=== PATIENT | male | born 1960 | race African-American/Black ===

== ENCOUNTER 2017-01-08 00:54 | Inpatient (IN) | payer SELFPAY ==
[~2017-01-08] VITALS: Ht 185.4 cm; Wt 140.0 kg
[2017-01-08 02:52] VITALS: BP 168/82; PULSE 71; RESP 18; TEMP 97.9; O2SAT 97
[2017-01-08] MEDS ORDERED: MAGNESIUM HYDROXIDE SUSP 30 ML CUP PO PRN ×2 (03:30→12:00)
[2017-01-08] MEDS ORDERED: LORazepam 2 MG/ML VIAL IM PRN (03:30)
[2017-01-08] MEDS ORDERED: ACETAMINOPHEN 325 MG TAB PO PRN ×2 (03:30→12:00)
[2017-01-08] MEDS ORDERED: ALUMINUM/MAGNESIUM/SIMETH 30 ML CUP PO PRN ×2 (03:30→12:00)
[2017-01-08] MEDS ORDERED: LORazepam 1 MG TAB PO PRN (03:30)
[2017-01-08 05:49] VITALS: BP 176/90; PULSE 76; RESP 17; TEMP 97.7; O2SAT 98
[2017-01-08] MEDS: NICOTINE 21 MG/24 HR PATCH T-DERMAL SCH (09:00)
[2017-01-08] MEDS ORDERED: hydrOXYzine HCL 50 MG TAB PO PRN (12:00)
[2017-01-08] MEDS ORDERED: HALOPERIDOL DECANOATE 50 MG/ML VIAL IM SCH (12:15)
--- NOTE | 2017-01-08 12:24 | HHI.HP ---
Provisional Diagnosis Admission Date Jan 08, 2017 at 02:47 [place] I. Schizophrenia chronic paranoid type f 20.0 Certification of Person's Competence To Provide Express and Informed Consent I have personally examined Flo Barrios , a person being served at [facility] on, Jan 08, 2017 12:06. Express and informed consent means consent voluntarily given in writing, by a competent person, after sufficient explanation and disclosure of the subject matter involved to enable the person to make a knowing and willful decision without any element of force, fraud, deceit, duress, or other form of constraint or coercion. This person is 18 years of age or older, is not now known to be incompetent to consent to treatment with a guardian advocate, and does not have a health care surrogate or proxy currently making medical treatment decisions. I have found this person to be one of the following: [] Competent to provide express and informed consent, as defined above, for voluntary admission to this facility and is competent to provide express and informed consent for treatment. He/she has the consistent capacity to make well reasoned, willful, and knowing decisions concerning his or her medical or mental health treatment. The person fully and consistently understands the purpose of the admission for examination/placement and is fully capable of personally exercising all rights assured [place] [] Incompetent to provide express and informed consent to voluntary admission, and this is incompetent to provide express and informed consent to treatment. The person must be transferred to involuntary status and a petition for a guardian advocate filed with the Circuit Court. [xxx] Refusing to provide express and informed consent to voluntary admission but is competent to provide express and informed consent for treatment. The person must be discharged or transferred to involuntary status. Form shall be completed within 24 hours of a person's arrival at the receiving facility and filed in the clinical record of each person: 1. Admitted on a voluntary basis 2. Permitted to provide express and informed consent to his/her own treatment 3. Allowed to transfer from involuntary to voluntary status 4. Prior to permitting a person to consent to his or her own treatment after having been previously found incompetent to consent to treatment. History of Present Illness Capacity: Lacks Capacity (patient less capacity to sign for admission, patient has capacity to sign for medication) Psych Chief Complaint: increase auditory hallucinations of command nature with suicidal ideation HPI Patient is a 56-year-old Afro-Swiss male who initially came to [facility] under [place] act signed by a Ericka Galan dated at 0110 a.m. if document reviewed initially stating schizophrenia bipolar disorder, patient well known history of suicidal attempts presents with states "I want to kill myself" patient states she has a psych history but is unable to afford his medications patient is medically cleared at that facility transferred here under the [place] act this of patient's first visit to this facility. At the present time patient sitting in chair in the day room medical student Eran present throughout session. He has a stockily built muscular somewhat disheveled Afro-Swiss male with graying hearing graying castaneda. He is guarded and hostile and somewhat paranoid. Though with gentle questioning acknowledges increased auditory hallucinations of a command nature telling him to harm himself. He acknowledges multiple past psychiatric hospitalizations primarily in the [facility]. It appears she is just about due for his Haldol decanoate injection that is scheduled every 21 days. He does acknowledge at times increase voices prior to his injection. Patient was is a somewhat confusing contradictory suggestive type responses to questioning when asked about education he stated he went to [employer]. But then he also complains she said various incarcerations in his past. He is somewhat vague also about past substance abuse history. He is vague about his lodging also voiced states he has lived in [facility] in the past. He states he has been remarried. And does have children though he is vague about his relationship with them in their location. Many event at the present time patient does meet criteria for involuntary psychiatric hospitalization under the [place] act I'll do first opinion request second opinion. Though I feel he does have capacity to sign for his medications. We will restart him on Haldol 5 mg orally twice a day. We 'll also offer him for Haldol decanoate 50 mg IM today and every 21 days. Will have a counselor work with exploring placement options for this gentleman once he stabilizes. It appears she does wish to return to the [facility] patient is vague with any prior physical or sexual abuse or mental health history and family Review of Systems Constitutional: DENIES: Diaphoretic episodes, Fatigue, Fever, Weight gain, Weight loss, Chills, Dizziness, Change in appetite, Night Sweats Endocrine: DENIES: Heat/cold intolerance, Polydipsia, Polyuria, Polyphagia Eyes: DENIES: Blurred vision, Diplopia, Eye inflammation, Eye pain, Vision loss , Photosensitivity, Double Vision Ears, nose, mouth, throat: DENIES: Tinnitus, Hearing loss, Vertigo, Nasal discharge, Oral lesions, Throat pain, Hoarseness, Ear Pain, Running Nose, Epistaxis, Sinus Pain, Toothache, Odynophagia Respiratory: DENIES: Apneas, Cough, Snoring, Wheezing, Hemoptysis, Sputum production, Shortness of breath Cardiovascular: DENIES: Chest pain, Palpitations, Syncope, Dyspnea on Exertion , PND, Lower Extremity Edema, Orthopnea, Claudication Gastrointestinal: DENIES: Abdominal pain, Black stools, Bloody stools, Constipation, Diarrhea, Nausea, Vomiting, Difficulty Swallowing, Anorexia Genitourinary: DENIES: Sexual dysfunction, Urinary frequency, Urinary incontinence, Urgency, Hematuria, Dysuria, Nocturia, Penile Discharge, Testicular Pain, Testicular Swelling Musculoskeletal: DENIES: Joint pain, Muscle aches, Stiffness, Joint Swelling, Back pain, Neck pain Integumentary: DENIES: Abnormal pigmentation, Nail changes, Pruritus, Rash Hematologic/lymphatic: DENIES: Bruising, Lymphadenopathy Immunologic/allergic: DENIES: Eczema, Urticaria Neurologic: DENIES: Abnormal gait, Headache, Localized weakness, Paresthesias, Seizures, Speech Problems, Tremor, Poor Balance Psychiatric: COMPLAINS OF: Anxiety, Depression, Hallucinations, Suicidal Ideation Past Psych History Psychological trauma history Denies Violence risk - others (6 mos) Denies Violence risk - self (6 mos) Is suicidal ideation Substance Abuse History Drugs/Alcohol past 12 months Denies Past Family Social History Coded Allergies: aspirin (Verified Allergy, Unknown, 01/08/17) pork derived (porcine) (Verified Allergy, Unknown, 01/08/17) Past Medical History Patient medically cleared [facility] Current Medications Medications (Trade) Dose Ordered Sig/Michael Route Start Time Stop Time Status Last Admin (Ativan) 1 mg Q6H PRN PO 01/08/17 03:30 (Ativan Inj) 1 mg Q6H PRN IM 01/08/17 03:30 (Tylenol) 650 mg Q4H PRN PO 01/08/17 03:30 (Milk Of Magnesia Liq) 30 ml DAILY PRN PO 01/08/17 03:30 (Mag-Al Plus Susp Liq) 30 ml Q6H PRN PO 01/08/17 03:30 (Habitrol 21 Mg Patch.24 Hr) 1 patch DAILY T-DERMAL 01/08/17 09:00 Miscellaneous Information 1 HS T-DERMAL 01/08/17 21:00 Family Psych History Patient unwilling to discuss Social History Patient vague confusing about marriages children living situation Patient's Strengths (min. 2) Patient verbal able to access healthcare Physical Exam Patient medically cleared [facility]. Present time patient sitting quietly in his chair in day room is in no acute distress, no respiratory distress, no complaints of abdominal pain patient moves all 4 extremities without difficulty. No abnormal motor movements noted Vital Signs Vital Signs Date Time Temp Pulse Resp B/P (MAP) Pulse Ox O2 Delivery O2 Flow Rate FiO2 01/08/17 05:49 97.7 76 17 176/90 (118) 98 Mental Status Examination Appearance: Disheveled, Malodorous Consciousness: Alert Orientation: x4 Motor Activity: Normal gait Speech: Unremarkable Language: Adequate Fund of Knowledge: Adequate Attention and Concentration: Other (fair) Memory: Impaired (at times somewhat confusing) Mood: Angry, Sad, Irritable Affect: Other (slight increase range of motion intensity) Thought Process & Associations: Loose associations Thought Content: Bizarre thinking, Hallucinations Hallucination Type: Auditory Delusion Type: Paranoid Suicidal Ideation: Yes (vague) Suicidal Plan: Yes (vague) Suicidal Intention: Yes (vague) Homicidal Ideation: No Homicidal Plan: No Homicidal Intention: No Insight: Poor Judgment: Poor Assessment & Plan Problem List: (1) Paranoid type schizophrenia, chronic state ICD Codes: F20.0 - Paranoid schizophrenia Assessment & Plan Estimated LOS: 3-5 days patient meets criteria for involuntary psychiatric consultation of the [place] act. I'll do first opinion request second opinion. We'll start him on Haldol 5 mg twice a day, also offer him a Drew decanoate 50 mg IM injection that stool daily 21 days. We will counselor talk with patient on Tuesday concerning placement issues with a locally or back in the [place] area Discharge Planning See above Request HC Surrog/Guard Advoc?: No Lanre Patel MD Jan 08, 2017 12:24
[2017-01-08] MEDS: HALOPERIDOL 5 MG TAB PO SCH ×2 (14:42→21:42)
[2017-01-08 17:32] VITALS: BP 175/106; PULSE 68; RESP 18; TEMP 98.9; O2SAT 96
[2017-01-08] MEDS: REMOVE OLD NICOTINE PATCH T-DERMAL SCH (21:00)
[2017-01-08 21:30] VITALS: BP 156/83
[2017-01-09 05:45] VITALS: BP 154/77
[2017-01-09 05:50] VITALS: BP 218/123; PULSE 79; RESP 18; TEMP 98.2; O2SAT 100
[2017-01-09] MEDS: HALOPERIDOL 5 MG TAB PO SCH ×2 (08:52→20:39)
[2017-01-09] MEDS: NICOTINE 21 MG/24 HR PATCH T-DERMAL SCH (08:52)
[2017-01-09 08:55] VITALS: BP 137/80; PULSE 76
--- NOTE | 2017-01-09 13:54 | PD.PSY.CON ---
Provisional Diagnosis Admission Date Jan 08, 2017 at 02:47 [place] I. Schizophrenia chronic paranoid type f 20.0 History of Present Illness Service Psychiatry Consult Requested By psychiatry Reason for Consult 2nd opinion Primary Care Physician No Primary Care Physician HPI Pt seen and chart reviewed. Pt is a 56YOBM admited to [facility] under a BA alleging suicidal ideations. Pt confirmed to RN that he is experiencing AH telling him to harm himself via hanging. He is cooperative during interview and appears to be responding to internal stimuli. He states that he is tolerating haldol well and it usually works well for him. He contracts for safety in hospital stating, "there's no way to do that here. I want to get better not ". He is somewhat paranoid but has been cooperative with care. Past Family Social History Coded Allergies: aspirin (Verified Allergy, Unknown, 01/08/17) pork derived (porcine) (Verified Allergy, Unknown, 01/08/17) Past Medical History reports hx of seizure while in senior living many years ago. many psychiatric hospitalizations. Current Medications Medications (Trade) Dose Ordered Sig/Michael Route Start Time Stop Time Status Last Admin (Ativan) 1 mg Q6H PRN PO 01/08/17 03:30 (Ativan Inj) 1 mg Q6H PRN IM 01/08/17 03:30 (Habitrol 21 Mg Patch.24 Hr) 1 patch DAILY T-DERMAL 01/08/17 09:00 Miscellaneous Information 1 HS T-DERMAL 01/08/17 21:00 (Benadryl) 50 mg HS PRN PO 01/08/17 12:00 (Tylenol) 650 mg Q4H PRN PO 01/08/17 12:00 (Milk Of Magnesia Liq) 30 ml DAILY PRN PO 01/08/17 12:00 01/08/17 14:42 (Mag-Al Plus Susp Liq) 30 ml Q6H PRN PO 01/08/17 12:00 (Atarax) 50 mg Q6H PRN PO 01/08/17 12:00 (Haldol) 5 mg BID PO 01/08/17 12:15 01/09/17 08:52 (Haldol Decanoate Inj) 50 mg Q21D IM 01/08/17 12:15 01/08/17 14:41 Family Psych History unknonw Social History disabled. homeless Patient's Strengths (min. 2) Patient verbal able to access healthcare Physical Exam Vital Signs Vital Signs Date Time Temp Pulse Resp B/P (MAP) Pulse Ox O2 Delivery O2 Flow Rate FiO2 01/09/17 08:55 76 137/80 (99) 01/09/17 05:50 98.2 18 100 Mental Status Examination Appearance: Disheveled, Malodorous Consciousness: Alert Orientation: x4 Motor Activity: Normal gait Speech: Unremarkable Language: Adequate Fund of Knowledge: Adequate Attention and Concentration: Other (fair) Memory: Impaired (at times somewhat confusing) Mood: Angry, Sad, Irritable Affect: Other (slight increase range of motion intensity) Thought Process & Associations: Loose associations Thought Content: Bizarre thinking, Hallucinations Hallucination Type: Auditory Delusion Type: Paranoid Suicidal Ideation: Yes (vague) Suicidal Plan: Yes (reports command AH telling him to harm self but denies intent) Suicidal Intention: No (denies intent) Homicidal Ideation: No Homicidal Plan: No Homicidal Intention: No Insight: Poor Judgment: Poor Assessment & Plan Problem List: (1) Paranoid type schizophrenia, chronic state ICD Codes: F20.0 - Paranoid schizophrenia Assessment & Plan I agree pt meets criteria for involuntary hospitalization order. 2nd opinon completed. Estimated LOS: days Request HC Surrog/Guard Advoc?: Emilia Praker MD Jan 09, 2017 13:54
[2017-01-09 17:27] VITALS: BP 146/80; PULSE 64; RESP 17; TEMP 97.5; O2SAT 99
[2017-01-09] MEDS: REMOVE OLD NICOTINE PATCH T-DERMAL SCH (20:39)
[2017-01-09] MEDS: diphenhydrAMINE HCL 50 MG CAP PO PRN (20:55)
[2017-01-10 06:25] VITALS: BP 152/83; PULSE 76; RESP 18; TEMP 98.7; O2SAT 100
[2017-01-10] MEDS ORDERED: cloNIDine HCL 0.1 MG TAB PO PRN (08:30)
--- NOTE | 2017-01-10 08:50 | PD.CONS ---
HPI Service [facility] Consult Requested By DR DESAI Reason for Consult DIABETES MANAGEMENT AND HYPERTENSION Primary Care Physician No Primary Care Physician Diagnoses: History of Present Illness PATIENT TRANSFERRED INTO PSYCHIATRY FROM [facility] UNDER [place] ACT KNOWN PSYCHIATRIC HISTORY PATIENT CURRENTLY DENIES ANY OTHER MEDICAL PROBLEMS OTHER THAN ALCOHOL ABUSE DENIES CHEST PAIN OR DIABETES OR HYPERTENSION AT THIS EXACT MOMENT NO NEW COMPLAINTS DENIES ANY MEDICATIONS OTHER THAN PSYCHIATRIC MEDICATIONS Review of Systems ROS Limitations: Altered Mental Status, Psychotic Constitutional: DENIES: Diaphoretic episodes, Fatigue, Fever, Weight gain Endocrine: DENIES: Heat/cold intolerance, Polydipsia Eyes: DENIES: Blurred vision, Diplopia Ears, nose, mouth, throat: DENIES: Tinnitus, Hearing loss Respiratory: DENIES: Apneas, Cough Cardiovascular: DENIES: Chest pain, Palpitations, Syncope Gastrointestinal: DENIES: Abdominal pain, Black stools, Bloody stools Musculoskeletal: DENIES: Joint pain, Muscle aches Integumentary: DENIES: Abnormal pigmentation, Nail changes Hematologic/lymphatic: DENIES: Bruising, Lymphadenopathy Immunologic/allergic: DENIES: Eczema, Urticaria Neurologic: DENIES: Abnormal gait, Headache Psychiatric: COMPLAINS OF: Anxiety, Confusion, Mood changes, Depression, Agitation Except as stated in HPI: all other systems reviewed are Neg Past Family Social History Allergies: Coded Allergies: aspirin (Verified Allergy, Unknown, 01/08/17) pork derived (porcine) (Verified Allergy, Unknown, 01/08/17) Past Medical History POSSIBLE HYPERTENSION AND DM AND ALCOHOL ABUSE OBESITY PSYCHIATRIC DISORDERS Past Surgical History POSSIBLE CARDIAC CATHETERIZATION Reported Medications UNOBTAINABLE Active Ordered Medications Current Medications Lorazepam (Ativan) 1 mg Q6H PRN PO MODERATE TO SEVERE ANXIETY; Start 01/08/17 at 03:30 Lorazepam (Ativan Inj) 1 mg Q6H PRN IM MODERATE TO SEVERE ANXIETY; Start 01/08 at 03:30 Acetaminophen (Tylenol) 650 mg Q4H PRN PO Pain 1-5 or Temp >101F; Start at 03:30; Stop 01/08/17 at 12:08; Status DC Magnesium Hydroxide (Milk Of Magnesia Liq) 30 ml DAILY PRN PO CONSTIPATION; Start 01/08/17 at 03:30; Stop 01/08/17 at 12:08; Status DC Al Hydrox/Mg Hydrox/Simethicone (Mag-Al Plus Susp Liq) 30 ml Q6H PRN PO DYSPEPSIA; Start 01/08/17 at 03:30; Stop 01/08/17 at 12:08; Status DC Nicotine (Habitrol 21 Mg Patch.24 Hr) 1 patch DAILY T-DERMAL ; Start 01/08/17 at 09:00 Miscellaneous Information 1 HS T-DERMAL ; Start 01/08/17 at 21:00 Diphenhydramine HCl (Benadryl) 50 mg HS PRN PO INSOMNIA Last administered on 20:55; Start 01/08/17 at 12:00 Acetaminophen (Tylenol) 650 mg Q4H PRN PO Pain 1-5 or Temp >101F; Start at 12:00 Magnesium Hydroxide (Milk Of Magnesia Liq) 30 ml DAILY PRN PO CONSTIPATION Last administered on 01/08/17 14:42; Start 01/08/17 at 12:00 Al Hydrox/Mg Hydrox/Simethicone (Mag-Al Plus Susp Liq) 30 ml Q6H PRN PO DYSPEPSIA; Start 01/08/17 at 12:00 Hydroxyzine HCl (Atarax) 50 mg Q6H PRN PO ANXIETY; Start 01/08/17 at 12:00 Haloperidol (Haldol) 5 mg BID PO Last administered on 01/09/17 20:39; Start 01/08/17 at 12:15 Haloperidol Decanoate (Haldol Decanoate Inj) 50 mg Q21D IM Last administered on 01/08/17 14:41; Start 01/08/17 at 12:15 Clonidine (Catapres) 0.1 mg Q4H PRN PO SBP>160, DBP>90; Start 01/10/17 at 08: 30 Family History UNOBTAINABLE Social History ALCOHOL ABUSE VODKA 2 PINTS/5THS A WEEK DENIES ILLICITS TOBACCO Physical Exam Vital Signs Vital Signs Date Time Temp Pulse Resp B/P (MAP) Pulse Ox O2 Delivery O2 Flow Rate FiO2 01/10/17 06:25 98.7 76 18 152/83 (106) 100 01/09/17 17:27 97.5 64 17 146/80 (102) 99 01/09/17 08:55 76 137/80 (99) Physical Exam GENERAL: This is a well-nourished, well-developed patient, in no apparent distress. SKIN: No rashes, ecchymoses or lesions. Cool and dry. HEAD: Atraumatic. Normocephalic. No temporal or scalp tenderness. EYES: Pupils equal round and reactive. Extraocular motions intact. No scleral icterus. No injection or drainage. ENT: Nose without bleeding, purulent drainage or septal hematoma. Throat without erythema, tonsillar hypertrophy or exudate. Uvula midline. Airway patent. NECK: Trachea midline. No JVD or lymphadenopathy. Supple, nontender, no meningeal signs. CARDIOVASCULAR: Regular rate and rhythm without murmurs, gallops, or rubs. S1, S2 NO S3 OR S4 RESPIRATORY: Clear to auscultation. Breath sounds equal bilaterally. No wheezes , rales, or rhonchi. GASTROINTESTINAL: Abdomen soft, non-tender, nondistended. No hepato-splenomegaly , or palpable masses. No guarding. OBESE MUSCULOSKELETAL: Extremities without clubbing, cyanosis, or edema. No joint tenderness, effusion, or edema noted. No calf tenderness. Negative Homans sign bilaterally. NEUROLOGICAL: Awake and alert. Cranial nerves II through XII intact. Motor and sensory grossly within normal limits. Five out of 5 muscle strength in all muscle groups. Normal speech. INSIGHT AND JUDGEMENT IS LIMITED MOOD AND BEHAVIOR IS INAPPROPRIATE Laboratory NOT DONE YET Imaging NOT DONE HERE Assessment and Plan Problem List: (1) Paranoid type schizophrenia, chronic state ICD Code: F20.0 - Paranoid schizophrenia Assessment and Plan POSSIBLE HYPERTENSION- WILL MONITOR AND HAVE PRN CATAPRES AVAILABLE POSSIBLE DM- WILL CHECK LABS, AND HEMOGLOBIN A1C OBESITY- WEIGHT LOSS RECOMMENDED ALCOHOL ABUSE MVI, THIAMINE, FOLIC ACID CHECK LABS TO RULE OUT THYROID ISSUES DW RN AND PT Code Status FULL CODE Discussed Condition With RN AND PATIENT NachoNeilInez ZHENG Jan 10, 2017 08:50
[2017-01-10] MEDS: THIAMINE HCL 100 MG TAB PO SCH (09:00)
[2017-01-10] MEDS: FOLIC ACID 1 MG TAB PO SCH (09:00)
[2017-01-10] MEDS: MULTIVITAMIN TAB PO SCH (09:00)
[2017-01-10] MEDS ORDERED: NICOTINE 14 MG/24 HR PATCH T-DERMAL PRN (09:00)
[2017-01-10] MEDS: HALOPERIDOL 5 MG TAB PO SCH ×2 (09:36→20:29)
--- NOTE | 2017-01-10 10:21 | PD.TTN ---
Patient Problems 1. Discharge planning 2. Medication compliance 3. Knowledge deficit 4. Lack of coping skills Progress Toward Goals Provider Present: Dr. Nallely Patel Provider Input: Dr. Patel's treatment team met to discuss patient's treatment plan, medicaition, and discharge plan. Patient continues to present paranoid, agitated, continue with treatment. Nurse(s) Input: Patient's nurse Angie reports patient is medication compliant, reports feeling anxious and suicidal . Psych Therapist Input: Patient seen in his room. Patient made very minimal conversation with this counselor. Patient reported he was feeling anxious, and suicidal, denied homicidal. Patient made poor eye sight. Patient continues to present paranoid. Patient will remain on unit for further stablization. Patient reports once he is discharged he wants to go to [place] to live with his friend. Group Spec/RT/OT/GALVAN Present: Jason Rivera OT Group Spec/RT/OT/GALVAN Input: Patient is new and has only attended [facility] Jan 10, 2017 10:21
--- NOTE | 2017-01-10 13:43 | HHI.PYPN ---
Subjective Chief Complaint: increase auditory hallucinations of command nature with suicidal ideation Remarks Patient seen in his room with medical student Rafaela, patient calm cooperative patient laying in bed face down of poor eye contact. It is noted that he continues to be quite malodorous. He acknowledges continued auditory hallucinations of threatening nature telling him to kill himself. Continues to have some vague suicidal ideation. Will increase his oral Haldol to 10 mg twice a day. Review of Systems Except as stated in HPI: all other systems reviewed are Neg Mental Status Examination Appearance: Disheveled, Malodorous Consciousness: Alert Orientation: x4 Motor Activity: Normal gait Speech: Unremarkable Language: Adequate Fund of Knowledge: Adequate Attention and Concentration: Other (fair) Memory: Impaired (at times somewhat confusing) Mood: Angry, Sad, Irritable Affect: Other (slight increase range of motion intensity) Thought Process & Associations: Loose associations Thought Content: Bizarre thinking, Hallucinations Hallucination Type: Auditory Delusion Type: Paranoid Suicidal Ideation: Yes (vague) Suicidal Plan: Yes (reports command AH telling him to harm self but denies intent) Suicidal Intention: No (denies intent) Homicidal Ideation: No Homicidal Plan: No Homicidal Intention: No Insight: Poor Judgment: Poor Results Vitals/IOs Vital Signs Date Time Temp Pulse Resp B/P (MAP) Pulse Ox O2 Delivery O2 Flow Rate FiO2 01/10/17 06:25 98.7 76 18 152/83 (106) 100 Intake and Output 01/10/17 01/10/17 01/11/17 08:00 16:00 00:00 Intake Total 240 ml 540 ml Balance 240 ml 540 ml Assessment & Plan Problem List: (1) Paranoid type schizophrenia, chronic state ICD Codes: F20.0 - Paranoid schizophrenia Assessment & Plan Estimated LOS: days patient continue psychotic paranoid with threatening auditory hallucinations. Thus Ramona some suicidal ideation. However he is compliant with medications, and has been no behavioral issue. Will increase oral Haldol to 10 mg twice a day Justification for Cont. Inpt. At this time patient will decompensate if placed in the lower level of care Discharge Planning Alternatives need to be explored by treatment team and counselor. Also need to determine patient's wishes about possibility of an [facility] placement Request HC Surrog/Guard Advoc?: No Lanre Patel MD Jan 10, 2017 13:43
[2017-01-10 13:44] LABS: AUTOMATED NEUTROPHIL # 2.4 TH/MM3 (1.8-7.7); BASOPHIL % 0.6 % (0.0-2.0); EOSINOPHIL # 0.4 TH/MM3 (0-0.4); EOSINOPHIL % 7.5 % (0.0-4.0); HEMATOCRIT 41.8 % (39.0-51.0); HEMO FLAGS DIFF FINAL; LYMPH % 31.1 % (9.0-44.0); LYMPHOCYTE # 1.6 TH/MM3 (1.0-4.8); MEAN CELL VOLUME 77.9 FL (80.0-100.0); MEAN CORPUSCULAR HEMOGLOBIN 25.2 PG (27.0-34.0); MEAN CORPUSCULAR HGB CONC 32.3 % (32.0-36.0); MONO % 13.5 % (0.0-8.0); NEUT % 47.3 % (16.0-70.0); PLATELET COUNT 224 TH/MM3 (150-450); RED BLOOD COUNT 5.37 MIL/MM3 (4.50-5.90); RED CELL DISTRIBUTION WIDTH 16.1 % (11.6-17.2); WHITE BLOOD COUNT 5.1 TH/MM3 (4.0-11.0)
[2017-01-10 14:13] LABS: ALT (GPT) 53 U/L (12-78); ANION GAP 9 MEQ/L (5-15); AST (GOT) 35 U/L (15-37); BICARBONATE 27.1 MEQ/L (21.0-32.0); BLOOD UREA NITROGEN 14 MG/DL (7-18); CHLORIDE 102 MEQ/L (98-107); GLOMERULAR FILTRATION RATE 75 ML/MIN (>89); SODIUM (NA) 138 MEQ/L (136-145)
[2017-01-10 14:22] LABS: ALKALINE PHOSPHATASE 55 U/L (45-117); FREE T4 0.86 NG/DL (0.76-1.46); TOTAL BILIRUBIN ADULT 0.2 MG/DL (0.2-1.0)
[2017-01-10 17:14] LABS: HEMOGLOBIN A1a 1.2 %; HEMOGLOBIN Ao 83.6 %; HEMOGLOBIN LA1C 2.1 %; HEMOGLOBIN P3 3.8 %
[2017-01-10 18:11] VITALS: BP 146/80; PULSE 64; RESP 18; TEMP 97.1; O2SAT 99
[2017-01-10] MEDS ORDERED: REMOVE OLD NICODERM (NICOTINE) PATCH T-DERMAL PRN (21:00)
[2017-01-10] MEDS: diphenhydrAMINE HCL 50 MG CAP PO PRN (21:35)
[2017-01-11 05:39] VITALS: BP 153/92; PULSE 81; RESP 17; TEMP 97.4; O2SAT 96
[2017-01-11 06:13] VITALS: BP 148/82
[2017-01-11] MEDS ORDERED: DEXTROSE 50% IN WATER 50 ML VIAL(D50) IV PUSH PRN (08:30)
[2017-01-11] MEDS ORDERED: GLUCAGON 1 MG/ML VIAL OTHER PRN (08:30)
[2017-01-11] MEDS: MULTIVITAMIN TAB PO SCH (09:04)
[2017-01-11] MEDS: FOLIC ACID 1 MG TAB PO SCH (09:04)
[2017-01-11] MEDS: THIAMINE HCL 100 MG TAB PO SCH (09:04)
[2017-01-11] MEDS: HALOPERIDOL 5 MG TAB PO SCH ×2 (09:05→20:08)
--- NOTE | 2017-01-11 10:02 | HHI.PR ---
Subjective Remarks PATIENT TRANSFERRED INTO PSYCHIATRY FROM [facility] UNDER [place] ACT KNOWN PSYCHIATRIC HISTORY PATIENT CURRENTLY DENIES ANY OTHER MEDICAL PROBLEMS OTHER THAN ALCOHOL ABUSE DENIES CHEST PAIN OR DIABETES OR HYPERTENSION AT THIS EXACT MOMENT NO NEW COMPLAINTS DENIES ANY MEDICATIONS OTHER THAN PSYCHIATRIC MEDICATIONS 01-11 HAS DM WITH HGBA1C OF 6.6 ACCU CHECKS AC AND HS DM DIET DW RN AND PT Objective Vitals Vital Signs Date Time Temp Pulse Resp B/P (MAP) Pulse Ox O2 Delivery O2 Flow Rate FiO2 01/11/17 06:13 148/82 (104) 01/11/17 05:39 97.4 81 17 153/92 (112) 96 01/10/17 18:11 97.1 64 18 146/80 (102) 99 I/O 01/10/17 01/10/17 01/10/17 01/11/17 01/11/17 01/11/17 07:00 15:00 23:00 07:00 15:00 23:00 Intake Total 780 ml 240 ml 480 ml Balance 780 ml 240 ml 480 ml Intake Oral 780 ml 240 ml 480 ml Result Diagram: 01/10/17 1255 01/10/17 1255 Other Results Laboratory Tests Test 01/10/17 12:55 White Blood Count 5.1 TH/MM3 Red Blood Count 5.37 MIL/MM3 Hemoglobin 13.5 GM/DL Hematocrit 41.8 % Mean Corpuscular Volume 77.9 FL Mean Corpuscular Hemoglobin 25.2 PG Mean Corpuscular Hemoglobin Concent 32.3 % Red Cell Distribution Width 16.1 % Platelet Count 224 TH/MM3 Mean Platelet Volume 8.4 FL Neutrophils (%) (Auto) 47.3 % Lymphocytes (%) (Auto) 31.1 % Monocytes (%) (Auto) 13.5 % Eosinophils (%) (Auto) 7.5 % Basophils (%) (Auto) 0.6 % Neutrophils # (Auto) 2.4 TH/MM3 Lymphocytes # (Auto) 1.6 TH/MM3 Monocytes # (Auto) 0.7 TH/MM3 Eosinophils # (Auto) 0.4 TH/MM3 Basophils # (Auto) 0.0 TH/MM3 CBC Comment DIFF FINAL Differential Comment Blood Urea Nitrogen 14 MG/DL Creatinine 1.22 MG/DL Random Glucose 113 MG/DL Total Protein 6.9 GM/DL Albumin 3.1 GM/DL Calcium Level 9.2 MG/DL Phosphorus Level 4.3 MG/DL Magnesium Level 2.0 MG/DL Alkaline Phosphatase 55 U/L Aspartate Amino Transf (AST/SGOT) 35 U/L Alanine Aminotransferase (ALT/SGPT) 53 U/L Total Bilirubin 0.2 MG/DL Sodium Level 138 MEQ/L Potassium Level 4.0 MEQ/L Chloride Level 102 MEQ/L Carbon Dioxide Level 27.1 MEQ/L Anion Gap 9 MEQ/L Estimat Glomerular Filtration Rate 75 ML/MIN Hemoglobin A1c 6.6 % Free Thyroxine 0.86 NG/DL Thyroid Stimulating Hormone 3rd Gen 0.983 uIU/ML Objective Remarks GENERAL: This is a well-nourished, well-developed patient, in no apparent distress. SKIN: No rashes, ecchymoses or lesions. Cool and dry. HEAD: Atraumatic. Normocephalic. No temporal or scalp tenderness. EYES: Pupils equal round and reactive. Extraocular motions intact. No scleral icterus. No injection or drainage. ENT: Nose without bleeding, purulent drainage or septal hematoma. Throat without erythema, tonsillar hypertrophy or exudate. Uvula midline. Airway patent. NECK: Trachea midline. No JVD or lymphadenopathy. Supple, nontender, no meningeal signs. CARDIOVASCULAR: Regular rate and rhythm without murmurs, gallops, or rubs. S1, S2 NO S3 OR S4 RESPIRATORY: Clear to auscultation. Breath sounds equal bilaterally. No wheezes , rales, or rhonchi. GASTROINTESTINAL: Abdomen soft, non-tender, nondistended. No hepato-splenomegaly , or palpable masses. No guarding. OBESE MUSCULOSKELETAL: Extremities without clubbing, cyanosis, or edema. No joint tenderness, effusion, or edema noted. No calf tenderness. Negative Homans sign bilaterally. NEUROLOGICAL: Awake and alert. Cranial nerves II through XII intact. Motor and sensory grossly within normal limits. Five out of 5 muscle strength in all muscle groups. Normal speech. INSIGHT AND JUDGEMENT IS LIMITED MOOD AND BEHAVIOR IS INAPPROPRIATE Medications and IVs Current Medications Lorazepam (Ativan) 1 mg Q6H PRN PO MODERATE TO SEVERE ANXIETY; Start 01/08/17 at 03:30 Lorazepam (Ativan Inj) 1 mg Q6H PRN IM MODERATE TO SEVERE ANXIETY; Start 01/08 at 03:30 Acetaminophen (Tylenol) 650 mg Q4H PRN PO Pain 1-5 or Temp >101F; Start at 03:30; Stop 01/08/17 at 12:08; Status DC Magnesium Hydroxide (Milk Of Magnesia Liq) 30 ml DAILY PRN PO CONSTIPATION; Start 01/08/17 at 03:30; Stop 01/08/17 at 12:08; Status DC Al Hydrox/Mg Hydrox/Simethicone (Mag-Al Plus Susp Liq) 30 ml Q6H PRN PO DYSPEPSIA; Start 01/08/17 at 03:30; Stop 01/08/17 at 12:08; Status DC Nicotine (Habitrol 21 Mg Patch.24 Hr) 1 patch DAILY T-DERMAL ; Start 01/08/17 at 09:00; Stop 01/10/17 at 09:24; Status DC Miscellaneous Information 1 HS T-DERMAL ; Start 01/08/17 at 21:00; Stop at 09:24; Status DC Diphenhydramine HCl (Benadryl) 50 mg HS PRN PO INSOMNIA Last administered on 21:35; Start 01/08/17 at 12:00 Acetaminophen (Tylenol) 650 mg Q4H PRN PO Pain 1-5 or Temp >101F; Start at 12:00 Magnesium Hydroxide (Milk Of Magnesia Liq) 30 ml DAILY PRN PO CONSTIPATION Last administered on 01/08/17 14:42; Start 01/08/17 at 12:00 Al Hydrox/Mg Hydrox/Simethicone (Mag-Al Plus Susp Liq) 30 ml Q6H PRN PO DYSPEPSIA; Start 01/08/17 at 12:00 Hydroxyzine HCl (Atarax) 50 mg Q6H PRN PO ANXIETY; Start 01/08/17 at 12:00 Haloperidol (Haldol) 5 mg BID PO Last administered on 01/10/17 09:36; Start 01/08/17 at 12:15; Stop 01/10/17 at 13:37; Status DC Haloperidol Decanoate (Haldol Decanoate Inj) 50 mg Q21D IM Last administered on 01/08/17 14:41; Start 01/08/17 at 12:15 Clonidine (Catapres) 0.1 mg Q4H PRN PO SBP>160, DBP>90; Start 01/10/17 at 08: 30 Multivitamins (Theragran) 1 tab DAILY PO Last administered on 01/11/17 09:04 ; Start 01/10/17 at 09:00 Thiamine HCl (Vitamin B1) 100 mg DAILY PO Last administered on 01/11/17 09:04 ; Start 01/10/17 at 09:00 Folic Acid (Folate) 1 mg DAILY PO Last administered on 01/11/17 09:04; Start 01/10/17 at 09:00 Nicotine (Habitrol 14 Mg Patch.24 Hr) 1 patch DAILY PRN T-DERMAL TOBACCO CRAVINGS; Start 01/10/17 at 09:00 Miscellaneous Information 1 HS PRN T-DERMAL SEE LABEL COMMENTS; Start at 21:00 Haloperidol (Haldol) 10 mg BID PO Last administered on 01/11/17 09:05; Start 01/10/17 at 21:00 Dextrose (D50w (Vial) Inj) 50 ml UNSCH PRN IV PUSH HYPOGLYCEMIA-SEE COMMENTS; Start 01/11/17 at 08:30 Glucagon (Glucagon Inj) 1 mg UNSCH PRN OTHER HYPOGLYCEMIA-SEE COMMENTS; Start 01/11/17 at 08:30 Insulin Aspart (NovoLOG SUPPLEMENTAL SCALE) 1 ACHS SLIDING SCALE SQ ; Start at 12:00 A/P Problem List: (1) Paranoid type schizophrenia, chronic state ICD Code: F20.0 - Paranoid schizophrenia Assessment and Plan POSSIBLE HYPERTENSION- WILL MONITOR AND HAVE PRN CATAPRES AVAILABLE- POSSIBLE DM- WILL CHECK LABS, AND HEMOGLOBIN R9E--UV DIET OBESITY- WEIGHT LOSS RECOMMENDED ALCOHOL ABUSE MVI, THIAMINE, FOLIC ACID CHECK LABS TO RULE OUT THYROID ISSUES CIARA RN AND PT Neil Griffith DO Jan 11, 2017 10:02
[2017-01-11] MEDS: INSULIN ASPART SUPPLEMENTAL SCALE SQ SCH ×3 (12:00→20:31)
--- NOTE | 2017-01-11 12:41 | HHI.PYPN ---
Subjective Chief Complaint: increase auditory hallucinations of command nature with suicidal ideation Remarks Patient seen in [place] with medical student Rafaela, chart reviewed patient compliant medication. He should continue somewhat sad with continued though diminished auditory hallucinations of a threatening nature. He still has vague suicidal ideation. At this time though I feel patient hasn't improved the point where he is able to sign voluntarily for his admission his medications. Thus I'll lift [place] act allow the patient sign voluntary Review of Systems Except as stated in HPI: all other systems reviewed are Neg Mental Status Examination Appearance: Disheveled, Malodorous Consciousness: Alert Orientation: x4 Motor Activity: Normal gait Speech: Unremarkable Language: Adequate Fund of Knowledge: Adequate Attention and Concentration: Other (fair) Memory: Impaired (at times somewhat confusing) Mood: Angry (decreased anger), Sad, Irritable (decreased irritability) Affect: Other Thought Process & Associations: Loose associations (improving) Thought Content: Bizarre thinking (decreasing), Hallucinations (continuing but diminishing) Hallucination Type: Auditory (continuing but diminishing) Delusion Type: Paranoid Suicidal Ideation: Yes (vague) Suicidal Plan: Yes (reports command AH telling him to harm self but denies intent) Suicidal Intention: No (denies intent) Homicidal Ideation: No Homicidal Plan: No Homicidal Intention: No Insight: Poor Judgment: Poor Results Labs Test 01/10/17 12:55 White Blood Count 5.1 TH/MM3 Red Blood Count 5.37 MIL/MM3 Hemoglobin 13.5 GM/DL Hematocrit 41.8 % Mean Corpuscular Volume 77.9 FL Mean Corpuscular Hemoglobin 25.2 PG Mean Corpuscular Hemoglobin Concent 32.3 % Red Cell Distribution Width 16.1 % Platelet Count 224 TH/MM3 Mean Platelet Volume 8.4 FL Neutrophils (%) (Auto) 47.3 % Lymphocytes (%) (Auto) 31.1 % Monocytes (%) (Auto) 13.5 % Eosinophils (%) (Auto) 7.5 % Basophils (%) (Auto) 0.6 % Neutrophils # (Auto) 2.4 TH/MM3 Lymphocytes # (Auto) 1.6 TH/MM3 Monocytes # (Auto) 0.7 TH/MM3 Eosinophils # (Auto) 0.4 TH/MM3 Basophils # (Auto) 0.0 TH/MM3 CBC Comment DIFF FINAL Differential Comment Blood Urea Nitrogen 14 MG/DL Creatinine 1.22 MG/DL Random Glucose 113 MG/DL Total Protein 6.9 GM/DL Albumin 3.1 GM/DL Calcium Level 9.2 MG/DL Phosphorus Level 4.3 MG/DL Magnesium Level 2.0 MG/DL Alkaline Phosphatase 55 U/L Aspartate Amino Transf (AST/SGOT) 35 U/L Alanine Aminotransferase (ALT/SGPT) 53 U/L Total Bilirubin 0.2 MG/DL Sodium Level 138 MEQ/L Potassium Level 4.0 MEQ/L Chloride Level 102 MEQ/L Carbon Dioxide Level 27.1 MEQ/L Anion Gap 9 MEQ/L Estimat Glomerular Filtration Rate 75 ML/MIN Hemoglobin A1c 6.6 % Free Thyroxine 0.86 NG/DL Thyroid Stimulating Hormone 3rd Gen 0.983 uIU/ML Vitals/IOs Vital Signs Date Time Temp Pulse Resp B/P (MAP) Pulse Ox O2 Delivery O2 Flow Rate FiO2 01/11/17 06:13 148/82 (104) 01/11/17 05:39 97.4 81 17 96 Intake and Output 01/11/17 01/11/17 01/12/17 08:00 16:00 00:00 Intake Total 840 ml Balance 840 ml Assessment & Plan Problem List: (1) Paranoid type schizophrenia, chronic state ICD Codes: F20.0 - Paranoid schizophrenia Assessment & Plan Estimated LOS: days patient continue some auditory hallucinations and suicidality but improving, this may feel patient has the capacity to sign voluntary has capacity significant medications. Thus I will lift the [place] act allow patient to sign voluntary Justification for Cont. Inpt. At this time patient will decompensate if not placed in an appropriate level of care Discharge Planning Patient may become problematic Request HC Surrog/Guard Advoc?: No Lanre Patel MD Jan 11, 2017 12:41
--- NOTE | 2017-01-11 13:55 | PD.TTN ---
Patient Problems 1. Discharge planning 2. Medication compliance 3. Knowledge deficit 4. Lack of coping skills Progress Toward Goals Provider Present: Dr. Nallely Patel Provider Input: Dr. Patel's treatment team met to discuss patient's treatment plan, medicaition, and discharge plan. Patient continues to present paranoid, agitated, continue with treatment. 01/11/17 Patient continues to have auditory hallucinations. Patient continues to state he is suicidal. Patient meets criteria. Nurse(s) Input: Patient's nurse Angie reports patient is medication compliant, reports feeling anxious and suicidal . 01/11/17 Patient's nurse Sonali states patient is hearing voices telling him to hang himself, but contracts for safety. Agrees to come to staff if thoughts become prevailing. Patient paces, medication compliant Psych Therapist Input: Patient seen in his room. Patient made very minimal conversation with this counselor. Patient reported he was feeling anxious, and suicidal, denied homicidal. Patient made poor eye sight. Patient continues to present paranoid. Patient will remain on unit for further stablization. Patient reports once he is discharged he wants to go to [place] to live with his 01/11/17 Patient presented less agitated today, but continues to present with internally stimulation of harming himself. Patient denies homicidal ideation. Patient is medication compliant, eating and sleeping well. Denies feeling paranoid here at the hospital. Patient reports once discharged will go live with friends in [place]. Patient's speech is clear, organized, and pressured. Patient made poor eye contact. friend. Group Spec/RT/OT/GALVAN Present: Jason Rivera OT, MANDY Duron Group Spec/RT/OT/GALVAN Input: Patient is new and has only attended [employer] only 01/11/17 Patient is depressed. Attends selective groups Casandra Damon [facility] Jan 11, 2017 13:55
[2017-01-11 18:00] VITALS: BP 148/95; PULSE 83; RESP 16; TEMP 98.1; O2SAT 97
[2017-01-11] MEDS: diphenhydrAMINE HCL 50 MG CAP PO PRN (23:35)
[2017-01-12 05:28] VITALS: BP 124/72; PULSE 69; RESP 18; TEMP 97.6; O2SAT 93
[2017-01-12] MEDS: INSULIN ASPART SUPPLEMENTAL SCALE SQ SCH (06:12)
[2017-01-12] MEDS: FOLIC ACID 1 MG TAB PO SCH (08:21)
[2017-01-12] MEDS: MULTIVITAMIN TAB PO SCH (08:21)
[2017-01-12] MEDS: THIAMINE HCL 100 MG TAB PO SCH (08:21)
[2017-01-12] MEDS: HALOPERIDOL 5 MG TAB PO SCH (08:23)
[2017-01-12] MEDS ORDERED: amLODIPine BESYLATE 5 MG TAB PO SCH (09:30)
--- NOTE | 2017-01-12 09:41 | HHI.PR ---
Subjective Remarks PATIENT TRANSFERRED INTO PSYCHIATRY FROM [facility] UNDER HERNANDEZ ACT KNOWN PSYCHIATRIC HISTORY PATIENT CURRENTLY DENIES ANY OTHER MEDICAL PROBLEMS OTHER THAN ALCOHOL ABUSE DENIES CHEST PAIN OR DIABETES OR HYPERTENSION AT THIS EXACT MOMENT NO NEW COMPLAINTS DENIES ANY MEDICATIONS OTHER THAN PSYCHIATRIC MEDICATIONS 01-11 HAS DM WITH HGBA1C OF 6.6 ACCU CHECKS AC AND HS DM DIET DW RN AND PT 01-12 DW RN AND PATIENT MAYBE DC TO HOME TODAY NO NEW COMPLAINTS Objective Vitals Vital Signs Date Time Temp Pulse Resp B/P (MAP) Pulse Ox O2 Delivery O2 Flow Rate FiO2 01/12/17 05:28 97.6 69 18 124/72 (89) 93 01/11/17 18:00 98.1 83 16 148/95 (112) 97 I/O 01/11/17 01/11/17 01/11/17 01/12/17 01/12/17 01/12/17 07:00 15:00 23:00 07:00 15:00 23:00 Intake Total 840 ml Balance 840 ml Intake Oral 840 ml Result Diagram: 01/10/17 1255 01/10/17 1255 Other Results Laboratory Tests Test 01/10/17 12:55 White Blood Count 5.1 TH/MM3 Red Blood Count 5.37 MIL/MM3 Hemoglobin 13.5 GM/DL Hematocrit 41.8 % Mean Corpuscular Volume 77.9 FL Mean Corpuscular Hemoglobin 25.2 PG Mean Corpuscular Hemoglobin Concent 32.3 % Red Cell Distribution Width 16.1 % Platelet Count 224 TH/MM3 Mean Platelet Volume 8.4 FL Neutrophils (%) (Auto) 47.3 % Lymphocytes (%) (Auto) 31.1 % Monocytes (%) (Auto) 13.5 % Eosinophils (%) (Auto) 7.5 % Basophils (%) (Auto) 0.6 % Neutrophils # (Auto) 2.4 TH/MM3 Lymphocytes # (Auto) 1.6 TH/MM3 Monocytes # (Auto) 0.7 TH/MM3 Eosinophils # (Auto) 0.4 TH/MM3 Basophils # (Auto) 0.0 TH/MM3 CBC Comment DIFF FINAL Differential Comment Blood Urea Nitrogen 14 MG/DL Creatinine 1.22 MG/DL Random Glucose 113 MG/DL Total Protein 6.9 GM/DL Albumin 3.1 GM/DL Calcium Level 9.2 MG/DL Phosphorus Level 4.3 MG/DL Magnesium Level 2.0 MG/DL Alkaline Phosphatase 55 U/L Aspartate Amino Transf (AST/SGOT) 35 U/L Alanine Aminotransferase (ALT/SGPT) 53 U/L Total Bilirubin 0.2 MG/DL Sodium Level 138 MEQ/L Potassium Level 4.0 MEQ/L Chloride Level 102 MEQ/L Carbon Dioxide Level 27.1 MEQ/L Anion Gap 9 MEQ/L Estimat Glomerular Filtration Rate 75 ML/MIN Hemoglobin A1c 6.6 % Free Thyroxine 0.86 NG/DL Thyroid Stimulating Hormone 3rd Gen 0.983 uIU/ML Objective Remarks GENERAL: This is a well-nourished, well-developed patient, in no apparent distress. SKIN: No rashes, ecchymoses or lesions. Cool and dry. HEAD: Atraumatic. Normocephalic. No temporal or scalp tenderness. EYES: Pupils equal round and reactive. Extraocular motions intact. No scleral icterus. No injection or drainage. ENT: Nose without bleeding, purulent drainage or septal hematoma. Throat without erythema, tonsillar hypertrophy or exudate. Uvula midline. Airway patent. NECK: Trachea midline. No JVD or lymphadenopathy. Supple, nontender, no meningeal signs. CARDIOVASCULAR: Regular rate and rhythm without murmurs, gallops, or rubs. S1, S2 NO S3 OR S4 RESPIRATORY: Clear to auscultation. Breath sounds equal bilaterally. No wheezes , rales, or rhonchi. GASTROINTESTINAL: Abdomen soft, non-tender, nondistended. No hepato-splenomegaly , or palpable masses. No guarding. OBESE MUSCULOSKELETAL: Extremities without clubbing, cyanosis, or edema. No joint tenderness, effusion, or edema noted. No calf tenderness. Negative Homans sign bilaterally. NEUROLOGICAL: Awake and alert. Cranial nerves II through XII intact. Motor and sensory grossly within normal limits. Five out of 5 muscle strength in all muscle groups. Normal speech. INSIGHT AND JUDGEMENT IS LIMITED MOOD AND BEHAVIOR IS INAPPROPRIATE Medications and IVs Current Medications Lorazepam (Ativan) 1 mg Q6H PRN PO MODERATE TO SEVERE ANXIETY Last administered on 01/11/17t 17:30; Start 01/08/17 at 03:30 Lorazepam (Ativan Inj) 1 mg Q6H PRN IM MODERATE TO SEVERE ANXIETY; Start 01/08 at 03:30 Acetaminophen (Tylenol) 650 mg Q4H PRN PO Pain 1-5 or Temp >101F; Start at 03:30; Stop 01/08/17 at 12:08; Status DC Magnesium Hydroxide (Milk Of Magnesia Liq) 30 ml DAILY PRN PO CONSTIPATION; Start 01/08/17 at 03:30; Stop 01/08/17 at 12:08; Status DC Al Hydrox/Mg Hydrox/Simethicone (Mag-Al Plus Susp Liq) 30 ml Q6H PRN PO DYSPEPSIA; Start 01/08/17 at 03:30; Stop 01/08/17 at 12:08; Status DC Nicotine (Habitrol 21 Mg Patch.24 Hr) 1 patch DAILY T-DERMAL ; Start 01/08/17 at 09:00; Stop 01/10/17 at 09:24; Status DC Miscellaneous Information 1 HS T-DERMAL ; Start 01/08/17 at 21:00; Stop at 09:24; Status DC Diphenhydramine HCl (Benadryl) 50 mg HS PRN PO INSOMNIA Last administered on 23:35; Start 01/08/17 at 12:00 Acetaminophen (Tylenol) 650 mg Q4H PRN PO Pain 1-5 or Temp >101F; Start at 12:00 Magnesium Hydroxide (Milk Of Magnesia Liq) 30 ml DAILY PRN PO CONSTIPATION Last administered on 01/08/17 14:42; Start 01/08/17 at 12:00 Al Hydrox/Mg Hydrox/Simethicone (Mag-Al Plus Susp Liq) 30 ml Q6H PRN PO DYSPEPSIA; Start 01/08/17 at 12:00 Hydroxyzine HCl (Atarax) 50 mg Q6H PRN PO ANXIETY; Start 01/08/17 at 12:00 Haloperidol (Haldol) 5 mg BID PO Last administered on 01/10/17 09:36; Start 01/08/17 at 12:15; Stop 01/10/17 at 13:37; Status DC Haloperidol Decanoate (Haldol Decanoate Inj) 50 mg Q21D IM Last administered on 01/08/17 14:41; Start 01/08/17 at 12:15 Clonidine (Catapres) 0.1 mg Q4H PRN PO SBP>160, DBP>90; Start 01/10/17 at 08: 30 Multivitamins (Theragran) 1 tab DAILY PO Last administered on 01/12/17 08:21 ; Start 01/10/17 at 09:00 Thiamine HCl (Vitamin B1) 100 mg DAILY PO Last administered on 01/12/17 08:21 ; Start 01/10/17 at 09:00 Folic Acid (Folate) 1 mg DAILY PO Last administered on 01/12/17 08:21; Start 01/10/17 at 09:00 Nicotine (Habitrol 14 Mg Patch.24 Hr) 1 patch DAILY PRN T-DERMAL TOBACCO CRAVINGS; Start 01/10/17 at 09:00 Miscellaneous Information 1 HS PRN T-DERMAL SEE LABEL COMMENTS; Start at 21:00 Haloperidol (Haldol) 10 mg BID PO Last administered on 01/12/17 08:23; Start 01/10/17 at 21:00 Dextrose (D50w (Vial) Inj) 50 ml UNSCH PRN IV PUSH HYPOGLYCEMIA-SEE COMMENTS; Start 01/11/17 at 08:30 Glucagon (Glucagon Inj) 1 mg UNSCH PRN OTHER HYPOGLYCEMIA-SEE COMMENTS; Start 01/11/17 at 08:30 Insulin Aspart (NovoLOG SUPPLEMENTAL SCALE) 1 ACHS SLIDING SCALE SQ ; Start at 12:00 Amlodipine Besylate (Norvasc) 5 mg DAILY PO Last administered on 01/12/17 09: 29; Start 01/12/17 at 09:30 Urinary Catheter: No Vascular Central Line Catheter: No A/P Problem List: (1) Paranoid type schizophrenia, chronic state ICD Code: F20.0 - Paranoid schizophrenia Assessment and Plan POSSIBLE HYPERTENSION- WILL MONITOR AND HAVE PRN CATAPRES AVAILABLE- POSSIBLE DM- WILL CHECK LABS, AND HEMOGLOBIN A5I--ID DIET OBESITY- WEIGHT LOSS RECOMMENDED ALCOHOL ABUSE MVI, THIAMINE, FOLIC ACID CHECK LABS TO RULE OUT THYROID ISSUES CIARA RN AND PT Neil Griffith DO Jan 12, 2017 09:41
[2017-01-12] MEDS ORDERED: THERTAB15 PO (09:44)
[2017-01-12] MEDS ORDERED: THIA100 PO (09:44)
[2017-01-12] MEDS ORDERED: FOLI1TAB6 PO (09:44)
[2017-01-12] MEDS ORDERED: NICO14DI23 T-DERMAL (09:44)
[2017-01-12] MEDS ORDERED: AMLO5 PO (09:44)
[2017-01-12] MEDS ORDERED: HALO10TA PO (09:52)
[2017-01-12] MEDS ORDERED: HALD50IN IM (09:52)
--- NOTE | 2017-01-12 09:59 | HHI.DS ---
Psychiatry Discharge Summary Inpatient Psychiatric care?: Yes Advance Directive: No Reason Not Provided: unable to assess Mental Health AdvanceDirective: No Health Care Proxy: No Admission Admission Date Jan 08, 2017 at 02:47 Admission Diagnosis: (1) Paranoid type schizophrenia, chronic state ICD Code: F20.0 - Paranoid schizophrenia GAF Score: 1 Brief History Pt seen and chart reviewed. Pt is a 56YOBM admited to [facility] under a BA alleging suicidal ideations. Pt confirmed to RN that he is experiencing AH telling him to harm himself via hanging. He is cooperative during interview and appears to be responding to internal stimuli. He states that he is tolerating haldol well and it usually works well for him. He contracts for safety in hospital stating, "there's no way to do that here. I want to get better not ". He is somewhat paranoid but has been cooperative with care. Tobacco Use In Past 30 Days: 5 or More Cigarettes/Day Alcohol Use: Never Hospital Course Patient's hospital course was uneventful, his initial paranoia vigilance and guardedness slowly resolved with interactions on the milieu, and compliance with his medication. He did receive the Haldol decanoate injection on 01/08. Is been compliant with the oral Haldol without any side effects. The auditory hallucinations have markedly diminished. Though not totally gone. Is able to process them well. Now denies suicidality or homicidality. He states he does have a place to stay. He is willing to continue his medications. He states he also has a psychiatrist in the [place] area. Thus patient will be discharged today to himself the medical medications have been written by the hospitalist. I will write 1 month supply of his oral Haldol on Haldol decanoate 50 mg every 21 days next due on 01/28 Results Blood Pressure 124 / 72 Vital Signs Date Time Temp Pulse Resp B/P (MAP) Pulse Ox O2 Delivery O2 Flow Rate FiO2 01/12/17 05:28 97.6 69 18 124/72 (89) 93 Laboratory Tests Test 01/10/17 12:55 Mean Corpuscular Volume 77.9 FL (80.0-100.0) Mean Corpuscular Hemoglobin 25.2 PG (27.0-34.0) Monocytes (%) (Auto) 13.5 % (0.0-8.0) Eosinophils (%) (Auto) 7.5 % (0.0-4.0) Random Glucose 113 MG/DL (74-106) Albumin 3.1 GM/DL (3.4-5.0) Estimat Glomerular Filtration Rate 75 ML/MIN (>89) Hemoglobin A1c 6.6 % (4.3-6.0) Laboratory Results Test 01/10/17 12:55 Hemoglobin A1c 6.6 % (4.3-6.0) Summary of Procedures None done Pending results at discharge: No Medications # of Antipsychotic meds at D/C: 1 Approp Antipsych med options 1 - Minimum of three failed multiple trials of monotherapy. 2 - Documented plan to taper to monotherapy due to previous use of multiple meds OR cross-taper in progress at D/C. 3 - Documentation of augmentation of Clozapine. 4 - Justification other than those listed in allowable values 1-3, document here : Discharge Discharge Date: Jan 12, 2017 Discharge Diagnosis: (1) Paranoid type schizophrenia, chronic state Diagnosis: Principal ICD Code: F20.0 - Paranoid schizophrenia Pt Condition on Discharge: Stable Discharge Disposition: Discharge Home Discharge Instructions Diet Instructions: Diabetic Diet Additional Diet Instructions: 1800-calorie Activities you can perform: Regular-No Restrictions Scheduled Appointment: Sreekanth Parmar (if patient relocates towards [place] follow-up with mental health clinic in [place]) Discharge Time > 30 minutes Mental Status Examination Appearance: Disheveled, Malodorous Consciousness: Alert Orientation: x4 Motor Activity: Normal gait Speech: Unremarkable Language: Adequate Fund of Knowledge: Adequate Attention and Concentration: Other (fair) Memory: Impaired (at times somewhat confusing) Mood: Angry (decreased anger), Sad, Irritable (decreased irritability) Affect: Other Thought Process & Associations: Loose associations (improving) Thought Content: Bizarre thinking (decreasing), Hallucinations (continuing but diminishing) Hallucination Type: Auditory (continuing but diminishing) Delusion Type: Paranoid Suicidal Ideation: Yes (vague) Suicidal Plan: Yes (reports command AH telling him to harm self but denies intent) Suicidal Intention: No (denies intent) Homicidal Ideation: No Homicidal Plan: No Homicidal Intention: No Insight: Poor Judgment: Poor Discharge/Advance Care Plan Health Problems: (1) Paranoid type schizophrenia, chronic state Goals to promote your health * To prevent worsening of your condition and complications * To maintain your health at the optimal level Directions to meet your goals Take your medications as prescribed Follow your dietary instruction Follow activity as directed Keep your appointments as scheduled Take your immunizations and boosters as scheduled If your symptoms worsen call your PCP, if no PCP go to Urgent Care Center or Emergency Room For 13/09 questions related to your inpatient stay or results of tests pending at discharge, please contact Dr. Lanre Patel at Smoking is Dangerous to Your Health. Avoid second hand smoking Lanre Patel MD Jan 12, 2017 09:59
== END 2017-01-12 11:35 | disposition home or self-care (01) | DRG 885 ==
LOC: H260 02:47 → H250 01-12 11:13
PROVIDERS: ADMIT Psychiatry & Neurology Psychiatry; ATTEND Psychiatry & Neurology Psychiatry
DX: F20.0 Paranoid schizophrenia (principal); R45.851 Suicidal ideations; E11.9 Type 2 diabetes mellitus without complications; I10 Essential (primary) hypertension; F10.10 Alcohol abuse, uncomplicated; Z79.899 Other long term (current) drug therapy; Z72.0 Tobacco use
CPT/HCPCS: 80053; 82948; 83036; 83735; 84100; 84439; 84443; 85025; J1631; Q0163

== ENCOUNTER 2017-07-04 20:57 | Inpatient (IN) | payer SELFPAY ==
[~2017-07-04] VITALS: Ht 185.4 cm; Wt 146.0 kg
[~2017-07-04 20:57] MED LIST: AMLO5 PO; FOLI1TAB6 PO; HALD50IN IM; HALO10TA PO; NICO14DI23 T-DERMAL; THERTAB15 PO; THIA100 PO
[2017-07-04 23:30] VITALS: BP 149/69; PULSE 63; RESP 16; TEMP 98.2; O2SAT 98
[2017-07-05] MEDS ORDERED: ALUMINUM/MAGNESIUM/SIMETH 30 ML CUP PO PRN (00:30)
[2017-07-05] MEDS ORDERED: diphenhydrAMINE HCL 50 MG/ML VIAL - HS PRN IM (00:30)
[2017-07-05] MEDS ORDERED: diphenhydrAMINE HCL 50 MG CAP - HS PRN PO (00:30)
[2017-07-05] MEDS ORDERED: MAGNESIUM HYDROXIDE SUSP 30 ML CUP PO PRN (00:30)
[2017-07-05] MEDS ORDERED: hydrOXYzine HCL 50 MG TAB PO PRN (00:30)
[2017-07-05] MEDS ORDERED: HALO1TAB PO (02:47)
[2017-07-05] MEDS ORDERED: ZYPR5TAB PO (02:47)
[2017-07-05] MEDS ORDERED: HALOPERIDOL 1 MG TAB PO SCH (09:00)
[2017-07-05] MEDS ORDERED: OLANZapine 5 MG TAB PO SCH (09:00)
[2017-07-05] MEDS: ARIPiprazole 10 MG TAB PO SCH (11:00)
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
--- NOTE | 2017-07-05 13:51 | HHI.PR ---
Addendum to Inpatient Note Addendum Reason: Additional Documentation Additional Information Attempted to consult on the patient. He denies history of HTN and refused to talk to me. Please call or reconsult when patient is cooperative. Bay Ospina MD July 05, 2017 13:51
[2017-07-05] MEDS ORDERED: BENZTROPINE MESYLATE 1 MG TAB PO PRN (14:00)
[2017-07-05] MEDS ORDERED: BENZTROPINE MESYLATE 2 MG/2 ML VIAL IM PRN (14:00)
--- NOTE | 2017-07-05 15:49 | PD.TTN ---
Patient Problems 1. Discharge planning 2. Medication compliance 3. Knowledge deficit 4. Lack of coping skills Progress Toward Goals Provider Present: Dr. James De Jesus Provider Input: 06/21/17 new coming here from [facility], has been here in past Macey Wang LCSW July 05, 2017 15:49
[2017-07-05 18:06] VITALS: BP 159/99; PULSE 72; RESP 18; TEMP 97.8; O2SAT 99
[2017-07-06 05:30] VITALS: BP 149/84; PULSE 70; RESP 18; TEMP 97.2
[2017-07-06] MEDS: cloNIDine HCL 0.1 MG TAB PO PRN ×2 (06:30→18:35)
[2017-07-06] MEDS: ARIPiprazole 10 MG TAB PO SCH (08:01)
[2017-07-06 08:48] LABS: AUTOMATED NEUTROPHIL # 2.4 TH/MM3 (1.8-7.7); BASOPHIL % 0.5 % (0.0-2.0); EOSINOPHIL # 0.2 TH/MM3 (0-0.4); EOSINOPHIL % 5.1 % (0.0-4.0); HEMATOCRIT 38.6 % (39.0-51.0); HEMOGLOBIN 12.4 GM/DL (13.0-17.0); LYMPHOCYTE # 1.5 TH/MM3 (1.0-4.8); MEAN CELL VOLUME 77.1 FL (80.0-100.0); MEAN CORPUSCULAR HEMOGLOBIN 24.7 PG (27.0-34.0); MEAN PLATELET VOLUME 8.3 FL (7.0-11.0); MONOCYTE # 0.5 TH/MM3 (0-0.9); NEUT % 52.4 % (16.0-70.0); PLATELET COUNT 235 TH/MM3 (150-450); RED BLOOD COUNT 5.01 MIL/MM3 (4.50-5.90); RED CELL DISTRIBUTION WIDTH 14.9 % (11.6-17.2); WHITE BLOOD COUNT 4.6 TH/MM3 (4.0-11.0)
[2017-07-06 09:13] LABS: AST (GOT) 26 U/L (15-37); BLOOD UREA NITROGEN 12 MG/DL (7-18); CALCIUM 8.8 MG/DL (8.5-10.1); CHLORIDE 105 MEQ/L (98-107); CREATININE 1.19 MG/DL (0.60-1.30); GLOMERULAR FILTRATION RATE 77 ML/MIN (>89); GLUCOSE,RANDOM 167 MG/DL (74-106); SODIUM (NA) 140 MEQ/L (136-145)
[2017-07-06 09:24] LABS: ALKALINE PHOSPHATASE 53 U/L (45-117); ALT (GPT) 34 U/L (12-78); TOTAL BILIRUBIN ADULT 0.3 MG/DL (0.2-1.0); TOTAL PROTEIN 6.7 GM/DL (6.4-8.2)
--- NOTE | 2017-07-06 09:51 | HHI.PYPN ---
Subjective Chief Complaint: Psychosis Remarks Patient seen and examined with nurse. Chart reviewed. Case discussed with nursing staff. On my examination today, the patient continues to complain of some deprecatory auditory hallucinations. He complains of some subjective irritability. He denies any SI or HI. Hopeful to watch some sports on television later. Denies side effects from medications. No physical complaints. Review of Systems ROS Limitations: Psychotic Except as stated in HPI: all other systems reviewed are Neg Mental Status Examination Appearance: Other (Grooming and hygiene improved) Consciousness: Alert Orientation: Person, Place (At least) Motor Activity: Other (No motor abnormalities noted) Speech: Unremarkable Language: Adequate Fund of Knowledge: Adequate Attention and Concentration: Adequate Memory: Unremarkable (Grossly intact on clinical exam) Mood: Irritable Affect: Blunt Thought Process & Associations: Circumstantial Thought Content: Appropriate Hallucination Type: Auditory (Deprecatory) Delusion Type: None Suicidal Ideation: No Suicidal Plan: No Suicidal Intention: No Homicidal Ideation: No Homicidal Plan: No Homicidal Intention: No Insight: Poor Judgment: Poor Results Labs Test 07/06/17 08:02 White Blood Count 4.6 TH/MM3 Red Blood Count 5.01 MIL/MM3 Hemoglobin 12.4 GM/DL Hematocrit 38.6 % Mean Corpuscular Volume 77.1 FL Mean Corpuscular Hemoglobin 24.7 PG Mean Corpuscular Hemoglobin Concent 32.0 % Red Cell Distribution Width 14.9 % Platelet Count 235 TH/MM3 Mean Platelet Volume 8.3 FL Neutrophils (%) (Auto) 52.4 % Lymphocytes (%) (Auto) 32.0 % Monocytes (%) (Auto) 10.0 % Eosinophils (%) (Auto) 5.1 % Basophils (%) (Auto) 0.5 % Neutrophils # (Auto) 2.4 TH/MM3 Lymphocytes # (Auto) 1.5 TH/MM3 Monocytes # (Auto) 0.5 TH/MM3 Eosinophils # (Auto) 0.2 TH/MM3 Basophils # (Auto) 0.0 TH/MM3 CBC Comment DIFF FINAL Differential Comment Blood Urea Nitrogen 12 MG/DL Creatinine 1.19 MG/DL Random Glucose 167 MG/DL Total Protein 6.7 GM/DL Albumin 3.0 GM/DL Calcium Level 8.8 MG/DL Alkaline Phosphatase 53 U/L Aspartate Amino Transf (AST/SGOT) 26 U/L Alanine Aminotransferase (ALT/SGPT) 34 U/L Total Bilirubin 0.3 MG/DL Sodium Level 140 MEQ/L Potassium Level 3.9 MEQ/L Chloride Level 105 MEQ/L Carbon Dioxide Level 26.0 MEQ/L Anion Gap 9 MEQ/L Estimat Glomerular Filtration Rate 77 ML/MIN Thyroid Stimulating Hormone 3rd Gen 0.978 uIU/ML Labs reviewed. Microcytic anemia noted. GFR mildly decreased. Vitals/IOs Vital Signs Date Time Temp Pulse Resp B/P (MAP) Pulse Ox O2 Delivery O2 Flow Rate FiO2 07/06/17 05:30 97.2 70 18 149/84 (105) 07/05/17 18:06 99 Assessment & Plan Problem List: (1) Acute exacerbation of chronic paranoid schizophrenia ICD Codes: F20.0 - Paranoid schizophrenia Assessment & Plan Titrate Abilify to 15 mg daily to target ongoing psychotic symptoms. Check iron studies given microcytic anemia. Encourage fluids and plan to check a follow-up BMP later in the week. Patient did not cooperate with hospitalist when he came around to evaluate the patient. I note the patient was on amlodipine 5 mg during his last admission for hypertension. Blood pressures remain somewhat elevated, and so I will resume this agent now. Continue to monitor on the inpatient unit. Continue other medications and care as ordered. Justification for Cont. Inpt. Medication changes. Impairment in reality construction. Risk for decompensation in less restrictive environment. Discharge Planning Pending psychiatric stabilization Request HC Surrog/Guard Advoc?: No Channing De Jesus MD July 06, 2017 09:51
[2017-07-06] MEDS ORDERED: GLUCAGON 1 MG/ML VIAL OTHER PRN (15:15)
[2017-07-06] MEDS ORDERED: DEXTROSE 50% IN WATER 50 ML VIAL(D50) IV PUSH PRN (15:15)
[2017-07-06 17:50] VITALS: BP 126/76; PULSE 89; RESP 18; TEMP 98.7; O2SAT 99
[2017-07-06 17:52] VITALS: BP 189/87; PULSE 69; RESP 18; TEMP 97.7; O2SAT 99
[2017-07-06 18:43] LABS: % SATURATION IRON PROFILE 18.6 % (20-50); IRON (FE) 71 MCG/DL (65-175); TOTAL IRON BINDING CAPACITY 382 MCG/DL (250-450)
[2017-07-06 18:46] LABS: FERRITIN 17 NG/ML (26-388)
[2017-07-06 20:00] VITALS: PULSE 69; RESP 18; TEMP 98.3; O2SAT 96
[2017-07-07 06:18] VITALS: BP 184/86; PULSE 70; RESP 18; TEMP 98.2; O2SAT 98
[2017-07-07] MEDS: INSULIN ASPART SUPPLEMENTAL SCALE SQ SCH (08:00)
[2017-07-07] MEDS: amLODIPine BESYLATE 5 MG TAB PO SCH (08:20)
[2017-07-07] MEDS: ACETAMINOPHEN 325 MG TAB PO PRN ×2 (08:26→14:17)
[2017-07-07] MEDS ORDERED: ARIPiprazole 15 MG TAB PO SCH (09:00)
--- NOTE | 2017-07-07 09:50 | HHI.PYPN ---
Subjective Chief Complaint: Psychosis Remarks Patient seen and examined. Chart reviewed. Case discussed with nursing staff. Patient reportedly somewhat irritable overnight but otherwise no real behavioral problem. On my examination today, I find the patient out in the day room. He wishes to conduct the interview there. He continues to report deprecatory auditory hallucinations. Patient also tells me he has gangrene in his left leg "because it runs in my family so I wouldn't go into the . I'm in the [employer] though." I have examined the leg, and there is no visible lesion, no warmth or erythema, no purulence. Affect is flat. Denies side effects from medications. He feels that he would benefit from additional Abilify. No physical complaints. Review of Systems ROS Limitations: Psychotic, Poor Historian Except as stated in HPI: all other systems reviewed are Neg Mental Status Examination Appearance: Other (Grooming and hygiene improved) Consciousness: Alert Orientation: Person, Place (At least) Motor Activity: Other (No abnormal motor movements noted) Speech: Unremarkable Language: Adequate Fund of Knowledge: Adequate Attention and Concentration: Adequate Memory: Unremarkable (Grossly intact on clinical exam) Mood: Irritable Affect: Flat Thought Process & Associations: Circumstantial Thought Content: Appropriate Hallucination Type: Auditory (Ongoing deprecatory) Delusion Type: Somatic Suicidal Ideation: No Suicidal Plan: No Suicidal Intention: No Homicidal Ideation: No Homicidal Plan: No Homicidal Intention: No Insight: Poor Judgment: Poor Results Labs Labs reviewed Item Value Date Time Iron Level 71 MCG/DL 07/06/17 0802 Total Iron Binding Capacity 382 MCG/DL 07/06/17 0802 Percent Iron Saturation 18.6 % L 07/06/17 0802 Ferritin 17 NG/ML L 07/06/17 0802 Prolactin 9.3 ng/mL 07/06/17 0802 Iron studies suggestive of borderline iron deficiency. PRL not elevated. Vitals/IOs Vital Signs Date Time Temp Pulse Resp B/P (MAP) Pulse Ox O2 Delivery O2 Flow Rate FiO2 07/07/17 06:18 98.2 70 18 184/86 (118) 98 Assessment & Plan Problem List: (1) Acute exacerbation of chronic paranoid schizophrenia ICD Codes: F20.0 - Paranoid schizophrenia Assessment & Plan Titrate Abilify to 20 mg daily to target ongoing psychotic symptoms. Add iron supplement. Continue to monitor on the inpatient unit. Continue other medications and care as ordered. Justification for Cont. Inpt. Impairment in reality construction. Medication changes. Risk for decompensation in less restrictive setting. Discharge Planning Pending psychiatric stabilization Request HC Surrog/Guard Advoc?: No Channing De Jesus MD July 07, 2017 09:50
[2017-07-07 10:46] VITALS: BP 128/59; PULSE 82
[2017-07-07] MEDS: FERROUS SULFATE 325 MG (65 MG ELEMENTAL IRON) TAB PO SCH (17:04)
[2017-07-07 17:44] VITALS: BP 163/80; PULSE 70; RESP 18; TEMP 98.5; O2SAT 98
[2017-07-08] MEDS: INSULIN ASPART SUPPLEMENTAL SCALE SQ SCH (08:00)
[2017-07-08] MEDS: amLODIPine BESYLATE 5 MG TAB PO SCH (09:00)
--- NOTE | 2017-07-08 11:08 | HHI.PYPN ---
Subjective Chief Complaint: Psychosis Remarks Patient seen and examined. Chart reviewed. Case discussed with nursing staff. No behavioral issues noted overnight. Case discussed in treatment team. On my examination today, the patient is sitting in the day area. He wishes to conduct the interview there. He is calm and cooperative. Says his presenting psychotic symptoms are improving somewhat with Abilify, rates these an "8.5/10" coming down from a 10/10. No SI or HI. Denies side effects from medications. No physical complaints. Agreeable to titration of Abilify over the weekend. Review of Systems ROS Limitations: Psychotic Except as stated in HPI: all other systems reviewed are Neg Mental Status Examination Appearance: Appropriate Consciousness: Alert Orientation: Person, Place, Date/Time (Approximate) Motor Activity: Other (No motor abnormalities noted) Speech: Unremarkable Language: Adequate Fund of Knowledge: Adequate Attention and Concentration: Adequate Memory: Unremarkable (Grossly intact on clinical exam) Mood: Appropriate Affect: Blunt Thought Process & Associations: Intact Thought Content: Appropriate Hallucination Type: Auditory (Ongoing deprecatory, decreasing) Delusion Type: None Suicidal Ideation: No Suicidal Plan: No Suicidal Intention: No Homicidal Ideation: No Homicidal Plan: No Homicidal Intention: No Mental Status Exam Remarks Insight and judgment are fair Results Labs Labs reviewed Vitals/IOs Vital Signs Date Time Temp Pulse Resp B/P (MAP) Pulse Ox O2 Delivery O2 Flow Rate FiO2 07/07/17 17:44 98.5 70 18 163/80 (773) 98 Assessment & Plan Problem List: (1) Acute exacerbation of chronic paranoid schizophrenia ICD Codes: F20.0 - Paranoid schizophrenia Assessment & Plan Titrate Abilify over the weekend to 30 mg daily to target residual psychotic symptoms. Titrate amlodipine to 7.5mg daily for ongoing elevated BP. Continue to monitor on the inpatient unit. Continue other medications and care as ordered. Justification for Cont. Inpt. Med changes. Risk for decompensation in less restrictive setting. Discharge Planning Pending psychiatric stabilization. Possible discharge after the weekend. Request HC Surrog/Guard Advoc?: No Channing De Jesus MD July 08, 2017 11:08
--- NOTE | 2017-07-08 11:49 | PD.TTN ---
Patient Problems 1. Discharge planning 2. Medication compliance 3. Knowledge deficit 4. Lack of coping skills Progress Toward Goals Provider Present: Dr. James De Jesus Provider Input: 06/21/17 new coming here from [facility], has been here in past 07/08/17: pt will be offered placement for expected discharge by tuesday Nurse(s) Present: Bella Nurse(s) Input: pt continues to be appropriate, compliant with medications and rules. Psychiatric Counselors Present: Macey Wang LCSW Psych Therapist Input: Pt to be offered placement as an option, he was previously homeless Group Spec/RT/OT/GALVAN Present: Masha To, CORBY, Jannie Miranda, OT Group Spec/RT/OT/GALVAN Input: Pt has not been attending groups. Documentation Scribe: jannie miranda ms, otr Jannie Miranda OTR July 08, 2017 11:49
[2017-07-08] MEDS: FERROUS SULFATE 325 MG (65 MG ELEMENTAL IRON) TAB PO SCH ×2 (12:00→17:00)
[2017-07-08 14:56] VITALS: BP 113/52; PULSE 80; RESP 17; TEMP 98
[2017-07-08] MEDS ORDERED: PILL SPLITTER OTHER PRN (15:00)
[2017-07-08 16:31] VITALS: BP 113/52; PULSE 80; RESP 17; TEMP 98.2; O2SAT 97
[2017-07-09 04:47] VITALS: BP 155/79; PULSE 72; RESP 18; TEMP 98; O2SAT 98
[2017-07-09] MEDS: INSULIN ASPART SUPPLEMENTAL SCALE SQ SCH (06:09)
[2017-07-09] MEDS: ARIPiprazole 30 MG TAB PO SCH (08:19)
[2017-07-09] MEDS: amLODIPine BESYLATE 5 MG TAB PO SCH (08:20)
[2017-07-09] MEDS: FERROUS SULFATE 325 MG (65 MG ELEMENTAL IRON) TAB PO SCH ×2 (12:00→17:26)
--- NOTE | 2017-07-09 15:09 | HHI.PYPN ---
Subjective Chief Complaint: Psychosis Remarks Pt seen and discussed with staff. Chart reviewed. Druze preoccupations and delusions."People are upset becaus the Lord is going to come down on a cloud and cleanse the earth." No aggression. Taking meds. Mental Status Examination Appearance: Appropriate Consciousness: Alert Orientation: Person, Place, Date/Time (Approximate) Motor Activity: Other (No motor abnormalities noted) Speech: Unremarkable Language: Adequate Fund of Knowledge: Adequate Attention and Concentration: Adequate Memory: Unremarkable (Grossly intact on clinical exam) Mood: Appropriate Affect: Blunt Thought Process & Associations: Intact Thought Content: Appropriate Hallucination Type: Auditory (Ongoing deprecatory, decreasing) Delusion Type: Bizarre Suicidal Ideation: No Suicidal Plan: No Suicidal Intention: No Homicidal Ideation: No Homicidal Plan: No Homicidal Intention: No Insight: Poor Results Vitals/IOs Vital Signs Date Time Temp Pulse Resp B/P (MAP) Pulse Ox O2 Delivery O2 Flow Rate FiO2 07/09/17 04:47 98.0 72 18 155/79 (104) 98 Assessment & Plan Problem List: (1) Acute exacerbation of chronic paranoid schizophrenia ICD Codes: F20.0 - Paranoid schizophrenia Assessment & Plan Continue current tx plan. Justification for Cont. Inpt. impairments in reality testing Request HC Surrog/Guard Advoc?: Emilia Parker MD July 09, 2017 15:09
[2017-07-10 05:50] VITALS: BP 127/66; PULSE 69; RESP 18; TEMP 98.2; O2SAT 98
[2017-07-10] MEDS: INSULIN ASPART SUPPLEMENTAL SCALE SQ SCH (08:00)
[2017-07-10] MEDS: ARIPiprazole 30 MG TAB PO SCH (08:15)
[2017-07-10] MEDS: amLODIPine BESYLATE 5 MG TAB PO SCH (08:16)
[2017-07-10] MEDS: FERROUS SULFATE 325 MG (65 MG ELEMENTAL IRON) TAB PO SCH ×2 (12:30→17:59)
--- NOTE | 2017-07-10 13:21 | HHI.PYPN ---
Subjective Chief Complaint: Psychosis Remarks Pt seen and discussed with staff. Staff report that last night pt was distressed due to AH. Today he has been less fixed on scientologist delusions today. He has been out of room more today. He is compliant with medications and denies side effects. Mental Status Examination Appearance: Appropriate Consciousness: Alert Orientation: Person, Place, Date/Time (Approximate) Motor Activity: Other (No motor abnormalities noted) Speech: Unremarkable Language: Adequate Fund of Knowledge: Adequate Attention and Concentration: Adequate Memory: Unremarkable (Grossly intact on clinical exam) Mood: Appropriate Affect: Blunt Thought Process & Associations: Intact Thought Content: Appropriate Hallucination Type: Auditory (Ongoing deprecatory, decreasing) Delusion Type: Bizarre Suicidal Ideation: No Suicidal Plan: No Suicidal Intention: No Homicidal Ideation: No Homicidal Plan: No Homicidal Intention: No Insight: Poor Results Vitals/IOs Vital Signs Date Time Temp Pulse Resp B/P (MAP) Pulse Ox O2 Delivery O2 Flow Rate FiO2 07/10/17 05:50 98.2 69 18 127/66 (86) 98 Assessment & Plan Problem List: (1) Acute exacerbation of chronic paranoid schizophrenia ICD Codes: F20.0 - Paranoid schizophrenia Assessment & Plan Continue current tx plan. Estimated LOS: days Justification for Cont. Inpt. impairments in psychosis and self care Request HC Surrog/Guard Advoc?: Emilia Parker MD July 10, 2017 13:21
[2017-07-10 18:26] VITALS: BP 138/81; PULSE 83; RESP 18; TEMP 98; O2SAT 98
[2017-07-11 05:23] VITALS: BP 150/70; PULSE 73; RESP 16; TEMP 97.6; O2SAT 98
[2017-07-11] MEDS: INSULIN ASPART SUPPLEMENTAL SCALE SQ SCH (08:00)
--- NOTE | 2017-07-11 08:55 | HHI.PYPN ---
Subjective Chief Complaint: Psychosis Remarks Patient seen and examined with nurse. Chart reviewed. Case discussed with nursing staff. Per nursing staff, patient somewhat religiously preoccupied. No behavioral problem. On my examination today, the patient insists that he has not noted any improvement from the Abilify. He has not noticed any side effects but continues to complain of deprecatory auditory hallucinations. He endorses vague suicidality and says "I do not want to live too long." He does not report any urge to hurt himself on the inpatient psychiatric unit. Also verbalizes some vague suicidal ideation with no specific victim. No reported urge to hurt anyone on the inpatient unit. Overall presentation is somewhat manipulative, I suspect with the goal of remaining on the inpatient unit. No physical complaints. Review of Systems ROS Limitations: Psychotic Except as stated in HPI: all other systems reviewed are Neg Mental Status Examination Appearance: Disheveled Consciousness: Alert Orientation: Person, Place (At least) Motor Activity: Other (No abnormal motor movements noted) Speech: Unremarkable Language: Adequate Fund of Knowledge: Adequate Attention and Concentration: Adequate Memory: Unremarkable (Grossly intact on clinical exam) Mood: Appropriate Affect: Blunt Thought Process & Associations: Intact Thought Content: Appropriate Hallucination Type: Auditory (Ongoing deprecatory) Delusion Type: Bizarre Suicidal Ideation: Yes (Vague) Suicidal Plan: No Suicidal Intention: No Homicidal Ideation: Yes (Vague) Homicidal Plan: No Homicidal Intention: No Insight: Fair Judgment: Impulsive Results Labs Labs reviewed Vitals/IOs Vital Signs Date Time Temp Pulse Resp B/P (MAP) Pulse Ox O2 Delivery O2 Flow Rate FiO2 07/11/17 05:23 97.6 73 16 150/70 (96) 98 Assessment & Plan Problem List: (1) Acute exacerbation of chronic paranoid schizophrenia ICD Codes: F20.0 - Paranoid schizophrenia Assessment & Plan Patient reports no benefit from Abilify. I do have passing suspicion that this may be a gambit to prolong his hospital stay by requiring selection of a different antipsychotic. However, given the severity of his reported symptoms, I think it is worth giving a different antipsychotic to try. I have discussed his options with the patient, and we settle on a trial of Geodon. Discontinue Abilify. Initiate Geodon 40 mg twice daily with plans to titrate to effect. Justification for Cont. Inpt. Med changes. Impairment in reality construction. Risk for decompensation in less restrictive environment. Discharge Planning Pending psychiatric stabilization Request HC Surrog/Guard Advoc?: No Channing De Jesus MD July 11, 2017 08:55
[2017-07-11] MEDS: amLODIPine BESYLATE 5 MG TAB PO SCH (09:36)
[2017-07-11] MEDS: ZIPRASIDONE HCL 40 MG CAP PO SCH ×2 (10:06→17:40)
[2017-07-11] MEDS: FERROUS SULFATE 325 MG (65 MG ELEMENTAL IRON) TAB PO SCH ×2 (12:51→17:40)
[2017-07-11 16:55] VITALS: BP 163/75; PULSE 77; RESP 18; TEMP 97.7; O2SAT 98
[2017-07-12] MEDS: INSULIN ASPART SUPPLEMENTAL SCALE SQ SCH (08:00)
[2017-07-12] MEDS: amLODIPine BESYLATE 5 MG TAB PO SCH (08:53)
[2017-07-12] MEDS: ZIPRASIDONE HCL 40 MG CAP PO SCH (08:53)
--- NOTE | 2017-07-12 10:09 | PD.TTN ---
Patient Problems 1. Discharge planning 2. Medication compliance 3. Knowledge deficit 4. Lack of coping skills Progress Toward Goals Provider Present: Dr. James De Jesus Provider Input: 06/21/17 new coming here from [facility], has been here in past 07/08/17: pt will be offered placement for expected discharge by tuesday07/12/17- Pt. recently had a med adjustment (changed to geodon). Nurse(s) Present: Bella Nurse(s) Input: pt continues to be appropriate, compliant with medications and rules. Psychiatric Counselors Present: Macey Wang LCSW Psych Therapist Input: Pt to be offered placement as an option, he was previously homeless 07/12/17- Pt. is homeless/ pt. has some insight. Group Spec/RT/OT/GALVAN Present: CORBY Delvalle, Jannie Miranda OT Group Spec/RT/OT/GALVAN Input: Pt has not been attending groups. 07/12/17- Pt. attends select groups. Pt. often isolates and is watchful. Documentation Scribe: jannie miranda ms, otr Lloyd Tate July 12, 2017 10:09
--- NOTE | 2017-07-12 11:23 | HHI.PYPN ---
Subjective Chief Complaint: Psychosis Remarks Patient seen and examined with nurse. Chart reviewed. Case discussed with nursing staff who reports that the patient urinated in the bed and refused to change his pants, which were soaked with urine. Case discussed in treatment team. On my examination today, the patient is secluding in his room. He tells me that he is "homesick." He tells me that it is "a dreary day." I note that he is still wearing urine-soaked pants, and the room has the aroma of urine. When I suggest to him that he change his pants, he declines saying "it's all dried up." When I suggest he shower at least, he haggles with me about the timing and assistance he will receive in so doing. Remains internally stimulated. No SI/HI. No side effects from medications. No physical complaints. Review of Systems ROS Limitations: Psychotic, Poor Historian Except as stated in HPI: all other systems reviewed are Neg Mental Status Examination Appearance: Disheveled Consciousness: Alert Orientation: Person, Place (At least) Motor Activity: Other (No motoric abnormalities noted) Speech: Unremarkable Language: Adequate Fund of Knowledge: Adequate Attention and Concentration: Adequate Memory: Unremarkable (Grossly intact on clinical exam) Mood: Other (Somewhat dysphoric) Affect: Blunt Thought Process & Associations: Intact Thought Content: Appropriate Hallucination Type: Other (Remains internally stimulated) Delusion Type: Bizarre Suicidal Ideation: No Suicidal Plan: No Suicidal Intention: No Homicidal Ideation: No Homicidal Plan: No Homicidal Intention: No Insight: Poor Judgment: Poor Results Labs Labs reviewed. No new labs. Vitals/IOs Vital Signs Date Time Temp Pulse Resp B/P (MAP) Pulse Ox O2 Delivery O2 Flow Rate FiO2 07/11/17 16:55 97.7 77 18 163/75 (552) 98 Assessment & Plan Problem List: (1) Acute exacerbation of chronic paranoid schizophrenia ICD Codes: F20.0 - Paranoid schizophrenia Assessment & Plan Patient responding inadequately to current therapy. Titrate Geodon to 60 mg twice daily with meals to target psychosis with plans for ongoing titration to effect. Encourage proper hygiene. Continue to monitor on the inpatient unit. Continue other medications and care as ordered. Justification for Cont. Inpt. Med changes. Impairment in self-care. Impairment in reality construction. High risk for decompensation in less restrictive setting. Discharge Planning Pending psychiatric stabilization Request HC Surrog/Guard Advoc?: No Channing De Jesus MD July 12, 2017 11:23
[2017-07-12] MEDS: FERROUS SULFATE 325 MG (65 MG ELEMENTAL IRON) TAB PO SCH ×2 (12:00→17:00)
[2017-07-12 16:27] VITALS: BP 156/106; PULSE 82; RESP 20; O2SAT 99
[2017-07-12] MEDS ORDERED: ZIPRASIDONE HCL 60 MG CAP PO SCH (18:00)
--- NOTE | 2017-07-12 18:06 | RADRPT ---
EXAM DATE: 07/12/2017 5:58 PM EDT AGE/SEX: 57 years / Male INDICATIONS: Right shoulder pain. CLINICAL DATA: This is the patient's initial encounter. Patient reports that signs and symptoms have been present for 3 days and indicates a pain score of 4/10. MEDICAL/SURGICAL HISTORY: . No pertinent medical history. . No pertinent surgical history. COMPARISON: No prior [facility] exams available for comparison. FINDINGS: Bony structures are intact and in normal alignment. Joints are intact without dislocation or significant arthropathy. Osseous density is normal. Soft tissues are unremarkable. No radiopaq ue foreign bodies seen. CONCLUSION: No evidence of recent bony injury. Electronically signed by: Bowen Stewart MD 07/12/2017 6:05 PM EDT
[2017-07-12 18:17] VITALS: BP 175/87; PULSE 82; RESP 18; TEMP 98.2; O2SAT 99
[2017-07-12 18:27] VITALS: BP 175/87; PULSE 84; RESP 18; O2SAT 99
[2017-07-13 06:33] VITALS: BP 124/78; PULSE 64; RESP 18; TEMP 97.6; O2SAT 95
[2017-07-13] MEDS: INSULIN ASPART SUPPLEMENTAL SCALE SQ SCH (08:00)
--- NOTE | 2017-07-13 08:32 | HHI.PYPN ---
Subjective Chief Complaint: Psychosis Remarks Patient seen and examined with nurse. Chart reviewed. Case discussed with nursing staff. On my examination today, the patient seems improved with titration of Geodon. He is more interactive and more appropriate in the interaction. He has showered this morning, and his hygiene is improved. He did have an episode of incontinence overnight. He denies dysuria, but I will check a UA. Denies AH but claims VH of "pink elephants." In context this seems likely to be malingered. No SI/HI. No physical complaints. Patient did report a fall last night onto shoulder but has no complaints of pain or limited mobility in this joint. Review of Systems ROS Limitations: Poor Historian Except as stated in HPI: all other systems reviewed are Neg Mental Status Examination Appearance: Appropriate Consciousness: Alert Orientation: Person, Place (At least) Motor Activity: Other (No abnormal motor movements noted) Speech: Unremarkable Language: Adequate Fund of Knowledge: Adequate Attention and Concentration: Adequate Memory: Unremarkable (Grossly intact on clinical exam) Mood: Appropriate Affect: Blunt Thought Process & Associations: Intact Thought Content: Appropriate Hallucination Type: Visual (Reported, as above. Does not appear internally stimulated.) Delusion Type: Bizarre Suicidal Ideation: No (No SI voiced) Homicidal Ideation: No (No HI voiced) Insight: Poor Judgment: Poor Results Labs Labs reviewed Vitals/IOs Vital Signs Date Time Temp Pulse Resp B/P (MAP) Pulse Ox O2 Delivery O2 Flow Rate FiO2 07/13/17 06:33 97.6 64 18 124/78 (93) 95 Assessment & Plan Problem List: (1) Acute exacerbation of chronic paranoid schizophrenia ICD Codes: F20.0 - Paranoid schizophrenia Assessment & Plan Titrate Geodon to 80 mg twice daily. Check a UA. Continue to monitor on the inpatient unit. Continue other medications and care as ordered. Justification for Cont. Inpt. Med changes. Discharge Planning I suspect we are approaching maximal benefit from this hospital stay. Secondary gain of retirement seems to be coming to the floor. Possible discharge for tomorrow. Request HC Surrog/Guard Advoc?: No Channing De Jesus MD July 13, 2017 08:32
[2017-07-13] MEDS: ZIPRASIDONE HCL 80 MG CAP PO SCH ×2 (08:58→17:35)
[2017-07-13] MEDS: FERROUS SULFATE 325 MG (65 MG ELEMENTAL IRON) TAB PO SCH ×2 (12:03→16:47)
[2017-07-13 17:36] VITALS: BP 173/97; PULSE 87; RESP 18; TEMP 97.7; O2SAT 98
[2017-07-14] MEDS: cloNIDine HCL 0.1 MG TAB PO PRN (04:37)
[2017-07-14 06:04] VITALS: BP 200/100; PULSE 72; RESP 16; TEMP 97.8; O2SAT 99
[2017-07-14] MEDS: INSULIN ASPART SUPPLEMENTAL SCALE SQ SCH (07:18)
[2017-07-14] MEDS: ZIPRASIDONE HCL 80 MG CAP PO SCH ×2 (09:00→17:21)
[2017-07-14] MEDS: FERROUS SULFATE 325 MG (65 MG ELEMENTAL IRON) TAB PO SCH ×2 (11:17→17:00)
--- NOTE | 2017-07-14 12:53 | HHI.PYPN ---
Subjective Chief Complaint: Psychosis Remarks Patient seen and examined with nurse. Chart reviewed. Case discussed with nursing staff. Blood pressure markedly elevated this morning. Patient was noted by nurse to be asymptomatic. I have ordered hospitalist consult. He reportedly refused recheck of blood pressure. On my examination today, the patient tells me "I do not have high blood pressure, I have hypertension." He continues to say that he will refuse blood pressure checks. He reports intermittent deprecatory auditory hallucinations. He endorses some vague suicidality. No reported urge to hurt himself on the inpatient unit. He complains of dry mouth from psychotropics but otherwise denies any side effects. He remains asymptomatic from elevated BP. No other physical complaints. Review of Systems ROS Limitations: Poor Historian Except as stated in HPI: all other systems reviewed are Neg Mental Status Examination Appearance: Appropriate Consciousness: Alert Orientation: Person, Place (At least) Motor Activity: Other (No motoric abnormalities noted) Speech: Unremarkable Language: Adequate Fund of Knowledge: Adequate Attention and Concentration: Adequate Memory: Unremarkable (Grossly intact on clinical exam) Mood: Appropriate Affect: Blunt Thought Process & Associations: Intact Thought Content: Appropriate, Bizarre thinking Hallucination Type: Auditory (Vague) Delusion Type: None Suicidal Ideation: Yes (Vague) Suicidal Plan: No Suicidal Intention: No (No reported urge to hurt self on an inpatient unit) Homicidal Ideation: No (No HI voiced) Insight: Poor Judgment: Poor Results Labs Labs reviewed. Urinalysis listed as in process. Vitals/IOs Vital Signs Date Time Temp Pulse Resp B/P (MAP) Pulse Ox O2 Delivery O2 Flow Rate FiO2 07/14/17 06:04 97.8 72 16 200/100 (133) 99 Assessment & Plan Problem List: (1) Acute exacerbation of chronic paranoid schizophrenia ICD Codes: F20.0 - Paranoid schizophrenia Assessment & Plan Some degree of symptom exaggeration suspected with regards to patient's psychiatric symptoms. Continue Geodon as ordered. Await hospitalist consultation regarding patient's elevated blood pressure. I have encouraged ample hydration and will order Biotene as needed for patient's complaints of dry mouth. Continue to monitor on the inpatient unit. Continue other medications and care as ordered. Justification for Cont. Inpt. Complicating condition Discharge Planning Possible discharge tomorrow or after the weekend once blood pressure issue has been addressed. Request HC Surrog/Guard Advoc?: No Channing De Jesus MD July 14, 2017 12:53
--- NOTE | 2017-07-14 15:04 | PD.CONS ---
[facility] Reason for Consult Assist with medical management HTN Primary Care Physician Unknown Diagnoses: History of Present Illness Patient is a 57-year-old -[place] male with history of schizophrenia/ bipolar disorder who presents as transfer from [facility] under a [place] act secondary to suicidal ideation. He is now admitted to inpatient psychiatry unit for further evaluation. Consulted for assistance with medical management patient is known to have hypertension Patient seen and examined today laying in bed. As per nursing, patient refused to take his blood pressures. Patient states that he can have blood pressures intermittently but not every day. Discussed with patient importance of blood pressure check as we are managing his blood pressure and starting him on BP medications. Patient agrees to start with BP medications. States he has high blood pressure but nothing in the medication also states that he does not know if he has diabetes but he has asthma. Denies any surgical history. Admits to drinking willian every day and smoking 2-4 cigarettes in the past 5 years. Patient is somewhat irritable during interview and exam but able to cooperate. Denies pain and discomfort. Denies SOB/ dyspnea. Denies chest pain, palpitations, headaches, dizziness. Denies fevers, chills, n/v/d. Denies dysuria. Review of Systems Except as stated in HPI: all other systems reviewed are Neg Past Family Social History Allergies: Coded Allergies: aspirin (Verified Allergy, Unknown, 01/08/17) pork derived (porcine) (Verified Allergy, Unknown, 01/08/17) Past Medical History HTN DM 2 EtOH Obesity Asthma Past Surgical History Cardiac catheterization Reported Medications Reported Meds & Active Scripts Active Reported Zyprexa (Olanzapine) 5 Mg Tab 5 Mg PO DAILY Haloperidol 1 Mg Tab 1 Mg PO BID Active Ordered Medications Current Medications Medications (Trade) Dose Ordered Sig/Michael Route Start Time Stop Time Status Last Admin (Atarax) 50 mg Q6H PRN PO 07/05/17 00:30 (Benadryl) 50 mg HS PRN PO 07/05/17 00:30 (Tylenol) 650 mg Q4H PRN PO 07/05/17 00:30 07/07/17 14:17 (Milk Of Magnesia Liq) 30 ml DAILY PRN PO 07/05/17 00:30 (Mag-Al Plus Susp Liq) 30 ml Q6H PRN PO 07/05/17 00:30 (Cogentin) 1 mg Q12HR PRN PO 07/05/17 14:00 (Cogentin Inj) 1 mg Q12HR PRN IM 07/05/17 14:00 (Catapres) 0.1 mg Q8HR PRN PO 07/05/17 14:00 07/14/17 04:37 (D50w (Vial) Inj) 50 ml UNSCH PRN IV PUSH 07/06/17 15:15 (Glucagon Inj) 1 mg UNSCH PRN OTHER 07/06/17 15:15 (NovoLOG SUPPLEMENTAL SCALE) 1 DAILY@0800 SQ 07/07/17 08:00 (Ferrous Sulfate) 325 mg BID@12,17 PO 07/07/17 17:00 07/14/17 11:17 (Pill Splitter) 1 ea UNSCH PRN OTHER 07/08/17 15:00 (Norvasc) 10 mg DAILY PO 07/13/17 09:00 07/14/17 09:00 (Geodon) 80 mg BIDPC PO 07/13/17 09:00 07/14/17 09:00 (Prinivil) 10 mg DAILY PO 07/15/17 09:00 (Glucophage) 500 mg BIDPC PO 07/14/17 18:00 UNV Family History Mother has heart trouble, Social History Admits to drinking willian every day Current day smoker 3-4 cigarettes a day Admits to cocaine use, snorting heroin Physical Exam Vital Signs Vital Signs Date Time Temp Pulse Resp B/P (MAP) Pulse Ox O2 Delivery O2 Flow Rate FiO2 07/14/17 06:04 97.8 72 16 200/100 (133) 99 07/13/17 17:36 97.7 87 18 173/97 (122) 98 Physical Exam GENERAL: This is an obese, well-developed patient, in no apparent distress. SKIN: Cool and dry. HEAD: Normocephalic. EYES: Pupils equal round and reactive. Extraocular motions intact. No scleral icterus. No injection or drainage. ENT: Nose without bleeding. Throat without erythema. Uvula midline. Airway patent. NECK: Trachea midline. CARDIOVASCULAR: Regular rate and rhythm without murmurs, gallops, or rubs. RESPIRATORY: Clear to auscultation. Breath sounds equal bilaterally. No wheezes , rales, or rhonchi. GASTROINTESTINAL: Abdomen soft, non-tender, obese. BS Active. MUSCULOSKELETAL: Extremities without clubbing, cyanosis, or edema. NEUROLOGICAL: Awake and alert. Irritable. Motor and sensory grossly within normal limits. Normal speech. Assessment and Plan Problem List: (1) HTN (hypertension) ICD Code: I10 - Essential (primary) hypertension (2) Paranoid type schizophrenia, chronic state ICD Code: F20.0 - Paranoid schizophrenia (3) Acute exacerbation of chronic paranoid schizophrenia ICD Code: F20.0 - Paranoid schizophrenia Assessment and Plan Patient is a 57-year-old -[place] male with history of schizophrenia/ bipolar disorder who presents as transfer from [facility] under a [place] act secondary to suicidal ideation. He is now admitted to inpatient psychiatry unit for further evaluation. Consulted for assistance with medical management patient is known to have hypertension. Schizophrenia, bipolar disorder Paranoia Managed by psychiatry team HTN Will start patient on lisinopril 10 mg, Norvasc 10 mg daily' Monitor BP trend. Discussed with patient extensively need for BP checks. He appears to be not to comply. Continue to encourage. DM 2, not on any medications -Last hemoglobin A1c 01/10/17 6.6 -Patient not on any medication. States he does not know he needs to take medication. However he demanded diabetic diet from the nurse when he came in. Endorses he is diabetic. -Start metformin 500 mg twice daily -Insulin sliding scale Tobacco abuse EtOH Polysubstance abuse Counseled. Nicotine patch. [facility] Protocol DVT prop ambulatory Code Status Full code Discussed Condition With Patient, nurse Karishma Fierro July 14, 2017 3:04 pm
[2017-07-14 16:34] VITALS: BP 129/57; PULSE 70; RESP 17; TEMP 97.9; O2SAT 97
[2017-07-14] MEDS: metFORMIN HCL 500 MG TAB PO SCH (17:21)
[2017-07-15 01:55] VITALS: BP 150/76; PULSE 82; RESP 18; TEMP 98; O2SAT 96
--- NOTE | 2017-07-15 04:16 | RADRPT ---
EXAM DATE: 07/15/2017 3:42 AM EDT AGE/SEX: 57 years / Male INDICATIONS: Right shoulder pain from recent fall. CLINICAL DATA: This is the patient's initial encounter. Patient reports that signs and symptoms have been present for 1 day and indicates a pain score of 3/10. MEDICAL/SURGICAL HISTORY: None. None. COMPARISON: No prior [place] exams available for comparison. FINDINGS: Bony structures are intact and in normal alignment. Joints are intact without dislocation or signifi cant arthropathy. Osseous density is normal. Soft tissues are unremarkable. No radiopaque foreign bodies seen. CONCLUSION: Negative right shoulder series. Electronically signed by: Lanre Montoya MD 07/15/2017 4:15 AM EDT
--- NOTE | 2017-07-15 04:18 | RADRPT ---
EXAM DATE: 07/15/2017 3:41 AM EDT AGE/SEX: 57 years / Male INDICATIONS: Right knee pain from a recent fall. CLINICAL DATA: This is the patient's initial encounter. Patient reports that signs and symptoms have been present for 1 day and indicates a pain score of 3/10. MEDICAL/SURGICAL HISTORY: None. None. COMPARISON: No prior [place] exams available for comparison. FINDINGS: Bony structures are intact and in normal alignment. Joints are intact without dislocation or signifi cant arthropathy. There is a small 3 mm rounded calcification seen adjacent to the medial aspect of t he proximal tibia. This is nonspecific but most closely resembles a phlebolith. Osseous density is n ormal. Soft tissues are unremarkable. No radiopaque foreign bodies seen. CONCLUSION: Negative right knee series. Electronically signed by: Lanre Montoya MD 07/15/2017 4:17 AM EDT
[2017-07-15 06:15] VITALS: BP 150/93; PULSE 78; RESP 20; TEMP 97.4; O2SAT 100
[2017-07-15] MEDS: INSULIN ASPART SUPPLEMENTAL SCALE SQ SCH (07:54)
--- NOTE | 2017-07-15 09:31 | HHI.PYPN ---
Subjective Chief Complaint: Psychosis Remarks Patient sitting in his room with nurse shweta and counselor Macey, chart reviewed, patient complaint medications, patient discussed with nurse. Patient continues somewhat depressed making some vague suicidal ideation statements. We will also tries to rationalize his behaviors. Somewhat manipulative and demanding. Says he has 13 children being raised by his mother [place] of state and they are all under 6 or 7 years old. I did question that he became somewhat irritable with me. The hospitalists consultation reviewed and appreciated and agreed with. Patient states she is willing to be on the blood pressure medicine though he states he does not have high blood pressure but he has hypertension. We also did discuss placement issues he is essentially homeless at this time has no significant funding. For now continue treatment Review of Systems Except as stated in HPI: all other systems reviewed are Neg Mental Status Examination Appearance: Appropriate Consciousness: Alert Orientation: Person, Place (At least) Motor Activity: Other (No motoric abnormalities noted) Speech: Unremarkable Language: Adequate Fund of Knowledge: Adequate Attention and Concentration: Adequate Memory: Unremarkable (Grossly intact on clinical exam) Mood: Appropriate Affect: Blunt Thought Process & Associations: Intact Thought Content: Appropriate, Bizarre thinking Hallucination Type: Auditory (Vague) Delusion Type: None Suicidal Ideation: Yes (Vague) Suicidal Plan: No Suicidal Intention: No (No reported urge to hurt self on an inpatient unit) Homicidal Ideation: No (No HI voiced) Insight: Poor Judgment: Poor Results Vitals/IOs Vital Signs Date Time Temp Pulse Resp B/P (MAP) Pulse Ox O2 Delivery O2 Flow Rate FiO2 07/15/17 06:15 97.4 78 20 150/93 (112) 100 Assessment & Plan Problem List: (1) Acute exacerbation of chronic paranoid schizophrenia ICD Codes: F20.0 - Paranoid schizophrenia Assessment & Plan Estimated LOS: days patient continues vigilant though denying voices there is a door of paranoia with him. There is also a degree of manipulation for now continue treatment he is displaying started on treatment for his hypertension Justification for Cont. Inpt. At this time patient would decompensate if placed in a lower level of care Discharge Planning To be determined Request HC Surrog/Guard Advoc?: No Lanre Patel MD July 15, 2017 09:31
[2017-07-15] MEDS: LISINOPRIL 10 MG TAB PO SCH (09:39)
[2017-07-15] MEDS: metFORMIN HCL 500 MG TAB PO SCH (09:39)
[2017-07-15] MEDS: ZIPRASIDONE HCL 80 MG CAP PO SCH ×2 (09:39→17:03)
[2017-07-15] MEDS: FERROUS SULFATE 325 MG (65 MG ELEMENTAL IRON) TAB PO SCH ×2 (11:36→17:03)
[2017-07-15 14:52] LABS: HEMATOCRIT 45.9 % (39.0-51.0); HEMOGLOBIN 14.5 GM/DL (13.0-17.0); MEAN CELL VOLUME 79.8 FL (80.0-100.0); MEAN CORPUSCULAR HEMOGLOBIN 25.1 PG (27.0-34.0); MEAN CORPUSCULAR HGB CONC 31.5 % (32.0-36.0); MEAN PLATELET VOLUME 8.7 FL (7.0-11.0); PLATELET COUNT 242 TH/MM3 (150-450); RED BLOOD COUNT 5.76 MIL/MM3 (4.50-5.90); RED CELL DISTRIBUTION WIDTH 16.1 % (11.6-17.2); WHITE BLOOD COUNT 5.1 TH/MM3 (4.0-11.0)
[2017-07-15 15:12] LABS: BICARBONATE 26.2 MEQ/L (21.0-32.0); BLOOD UREA NITROGEN 14 MG/DL (7-18); CALCIUM 9.3 MG/DL (8.5-10.1); CHLORIDE 104 MEQ/L (98-107); CREATININE 1.39 MG/DL (0.60-1.30); GLOMERULAR FILTRATION RATE 64 ML/MIN (>89); GLUCOSE,RANDOM 127 MG/DL (74-106); SODIUM (NA) 140 MEQ/L (136-145)
--- NOTE | 2017-07-15 16:21 | HHI.PR ---
Subjective Remarks Follow-up visit paranoia, noncompliance, HTN, DM. Patient seen today laying in bed. States he is doing okay. Discussed with patient results of his labs and needs for compliance. As per nursing, patient keeps on refusing either taking the medications, or having his vital signs taken. Patient is adamantly declines physical exam. Objective Vitals Vital Signs Date Time Temp Pulse Resp B/P (MAP) Pulse Ox O2 Delivery O2 Flow Rate FiO2 07/15/17 06:15 97.4 78 20 150/93 (112) 100 07/15/17 01:55 98.0 82 18 150/76 (100) 96 07/14/17 16:34 97.9 70 17 129/57 (81) 97 I/O 07/14/17 07/14/17 07/14/17 07/15/17 07/15/17 07/15/17 06:59 14:59 22:59 06:59 14:59 22:59 Intake Total 960 ml Balance 960 ml Intake Oral 960 ml Result Diagram: 07/15/17 1359 07/15/17 1359 Objective Remarks GENERAL: This is a obese, well-developed patient, in no apparent distress. SKIN: Dry HEENT: Normocephalic. Nose without bleeding. Airway patent. NECK: Trachea midline. GASTROINTESTINAL: Obese MUSCULOSKELETAL: Extremities without clubbing, cyanosis, or edema. NEUROLOGICAL: Awake and alert. Irritable. Normal speech. A/P Problem List: (1) HTN (hypertension) ICD Code: I10 - Essential (primary) hypertension (2) Paranoid type schizophrenia, chronic state ICD Code: F20.0 - Paranoid schizophrenia (3) Acute exacerbation of chronic paranoid schizophrenia ICD Code: F20.0 - Paranoid schizophrenia Assessment and Plan Patient is a 57-year-old -Togolese male with history of schizophrenia/ bipolar disorder who presents as transfer from [facility] under a [place] act secondary to suicidal ideation. He is now admitted to inpatient psychiatry unit for further evaluation. Consulted for assistance with medical management patient is known to have hypertension. Schizophrenia, bipolar disorder Paranoia -Managed by psychiatry team HTN -Norvasc 10 mg daily, continue low-dose lisinopril for now. Monitor renal indicis -Monitor BP trend. Discussed with patient extensively need for BP checks. He appears to be not to comply. Continue to encourage. Acute kidney injury and possibly chronic kidney disease ST 3 -Avoid nephrotoxins -Encourage p.o. fluid and -Recheck BMP in a few days DM 2, not on any medications -Last hemoglobin A1c 01/10/17 6.6. Recheck hemoglobin A1c -Patient not on any medication. Started on metformin. Creatinine came back elevated. Will DC metformin for now and start Januvia 50 mg daily -Insulin sliding scale. Monitor Accu-Chek Tobacco abuse EtOH Polysubstance abuse -Counseled. Nicotine patch. -[facility] Protocol Noncompliant, paranoid -Patient has not been compliant behavior. He is a difficult patient to medically manage as he will only allow nurses to check on him or give him his medications on his terms. DVT prop ambulatory Tod-Karishma Hubbard July 15, 2017 16:21
[2017-07-15] MEDS ORDERED: glipiZIDE 5 MG TAB PO SCH (17:00)
[2017-07-15 18:00] VITALS: BP 96/42; PULSE 72; RESP 20; TEMP 97.4; O2SAT 100
[2017-07-16 06:16] VITALS: BP 134/64; PULSE 70; RESP 18; TEMP 97.4; O2SAT 98
[2017-07-16] MEDS: INSULIN ASPART SUPPLEMENTAL SCALE SQ SCH (06:18)
[2017-07-16] MEDS: LISINOPRIL 10 MG TAB PO SCH (08:48)
[2017-07-16] MEDS: ZIPRASIDONE HCL 80 MG CAP PO SCH ×2 (08:49→17:26)
[2017-07-16] MEDS: FERROUS SULFATE 325 MG (65 MG ELEMENTAL IRON) TAB PO SCH ×2 (13:16→17:26)
--- NOTE | 2017-07-16 13:27 | HHI.PYPN ---
Subjective Chief Complaint: Psychosis Remarks Chart reviewed and discussed with nursing staff. Patient lying in his bed and endorses hearing voices that are demanding and seeing "pink elephants." He continues to appear depressed and voices no suicidal ideations. He presents irritable and not interested in participating in his care. He has to be coached to take him medications. He stays in his room and does not like to get up. He states that he is planning on being discharged on Tuesday, but does not have a place to go. It appears that he may be homeless even though he has a large extended family. Mental Status Examination Appearance: Appropriate Consciousness: Alert Orientation: Person, Place (At least) Motor Activity: Other (No motoric abnormalities noted) Speech: Unremarkable Language: Adequate Fund of Knowledge: Adequate Attention and Concentration: Adequate Memory: Unremarkable (Grossly intact on clinical exam) Mood: Sad Affect: Blunt Thought Process & Associations: Intact Thought Content: Appropriate, Bizarre thinking Hallucination Type: Auditory (hearing aggressive voices ), Visual (seeing "[place] elephants" ) Delusion Type: None Suicidal Ideation: Yes (Vague) Suicidal Plan: No Suicidal Intention: No (No reported urge to hurt self on an inpatient unit) Homicidal Ideation: No (No HI voiced) Insight: Poor Judgment: Poor Results Labs Test 07/15/17 13:59 White Blood Count 5.1 TH/MM3 Red Blood Count 5.76 MIL/MM3 Hemoglobin 14.5 GM/DL Hematocrit 45.9 % Mean Corpuscular Volume 79.8 FL Mean Corpuscular Hemoglobin 25.1 PG Mean Corpuscular Hemoglobin Concent 31.5 % Red Cell Distribution Width 16.1 % Platelet Count 242 TH/MM3 Mean Platelet Volume 8.7 FL Blood Urea Nitrogen 14 MG/DL Creatinine 1.39 MG/DL Random Glucose 127 MG/DL Calcium Level 9.3 MG/DL Sodium Level 140 MEQ/L Potassium Level 4.1 MEQ/L Chloride Level 104 MEQ/L Carbon Dioxide Level 26.2 MEQ/L Anion Gap 10 MEQ/L Estimat Glomerular Filtration Rate 64 ML/MIN Vitals/IOs Vital Signs Date Time Temp Pulse Resp B/P (MAP) Pulse Ox O2 Delivery O2 Flow Rate FiO2 07/16/17 06:16 97.4 70 18 134/64 (87) 98 Intake and Output 07/16/17 07/16/17 07/17/17 08:00 16:00 00:00 Intake Total 600 ml Balance 600 ml Assessment & Plan Problem List: (1) Acute exacerbation of chronic paranoid schizophrenia ICD Codes: F20.0 - Paranoid schizophrenia Assessment & Plan: Patient is endorsing both visual and auditory hallucinations. The voices are aggressive and states he is seeing "pink elephants." He is lying in his bed and appears depressed. He does not have a place to go after discharge. He is struggling with being medication compliant. Assessment & Plan Estimated LOS: days Justification for Cont. Inpt. Moving patient to a lower level of care may result in his decompensation. Request HC Surrog/Guard Advoc?: No Ashlie Francis July 16, 2017 13:27
--- NOTE | 2017-07-16 14:45 | HHI.PR ---
Subjective Remarks Follow-up visit paranoia, noncompliance, HTN, DM. Patient seen today laying in bed. States he is doing okay. Declines physical exam. Objective Vitals Vital Signs Date Time Temp Pulse Resp B/P (MAP) Pulse Ox O2 Delivery O2 Flow Rate FiO2 07/16/17 06:16 97.4 70 18 134/64 (87) 98 07/15/17 18:00 97.4 72 20 96/42 (60) 100 I/O 07/15/17 07/15/17 07/15/17 07/16/17 07/16/17 07/16/17 07:00 15:00 23:00 07:00 15:00 23:00 Intake Total 960 ml 480 ml 600 ml Balance 960 ml 480 ml 600 ml Intake Oral 960 ml 480 ml 600 ml Result Diagram: 07/15/17 1359 07/15/17 1359 Objective Remarks GENERAL: This is a obese, well-developed patient, in no apparent distress. SKIN: Dry HEENT: Normocephalic. Nose without bleeding. Airway patent. NECK: Trachea midline. GASTROINTESTINAL: Obese MUSCULOSKELETAL: Extremities without clubbing, cyanosis, or edema. NEUROLOGICAL: Awake and alert. Irritable. Normal speech. A/P Problem List: (1) HTN (hypertension) ICD Code: I10 - Essential (primary) hypertension (2) Paranoid type schizophrenia, chronic state ICD Code: F20.0 - Paranoid schizophrenia (3) Acute exacerbation of chronic paranoid schizophrenia ICD Code: F20.0 - Paranoid schizophrenia Assessment and Plan Patient is a 57-year-old -[place]ib[place] male with history of schizophrenia/ bipolar disorder who presents as transfer from [facility] under a [place] act secondary to suicidal ideation. He is now admitted to inpatient psychiatry unit for further evaluation. Consulted for assistance with medical management patient is known to have hypertension. Schizophrenia, bipolar disorder Paranoia -Managed by psychiatry team HTN -Norvasc 10 mg daily, continue low-dose lisinopril for now. Monitor renal indicis -Monitor BP trend. Discussed with patient extensively need for BP checks. He appears to be not to comply. Continue to encourage. -Declining physical exam. Acute kidney injury and possibly chronic kidney disease ST 3 -Avoid nephrotoxins -Encourage p.o. fluid and -Recheck BMP in a few days DM 2, not on any medications -Last hemoglobin A1c 01/10/17 6.6. Recheck hemoglobin A1c, pending results -Patient not on any medication. Started on metformin. Creatinine came back elevated. Will DC metformin for now and start Januvia 50 mg daily -Insulin sliding scale. Monitor Accu-Chek Tobacco abuse EtOH Polysubstance abuse -Counseled. Nicotine patch. -[facility] Protocol Noncompliant, paranoid -Patient has not been compliant behavior. He is a difficult patient to medically manage as he will only allow nurses to check on him or give him his medications on his terms. DVT prop ambulatory Karishma Fierro July 16, 2017 14:45
[2017-07-16 18:00] VITALS: BP 137/67; PULSE 81; RESP 18; TEMP 98.2
[2017-07-17 05:27] VITALS: BP 126/60; PULSE 72; RESP 18; TEMP 97.9; O2SAT 97
[2017-07-17] MEDS: INSULIN ASPART SUPPLEMENTAL SCALE SQ SCH (06:19)
[2017-07-17] MEDS: LISINOPRIL 10 MG TAB PO SCH (08:19)
[2017-07-17] MEDS: ZIPRASIDONE HCL 80 MG CAP PO SCH ×2 (08:20→08:28)
--- NOTE | 2017-07-17 11:29 | HHI.PYPN ---
Subjective Chief Complaint: Psychosis Remarks Patient seen and examined with nurse in weekend coverage. Chart reviewed. Case discussed with nursing staff. Patient reportedly refused to Geodon. Nurse conjectures the patient is growing more oppositional in setting of impending discharge. On my examination today, patient presents as somewhat irritable. When I ask about SI or HI he replies vaguely "yeah, both." He does not have any specific suicide plan or violence plan or intended victim. Possibly manipulative SI/HI. No auditory hallucinations. Reports visual hallucinations of "pink elephants, dumbo jumbo." We discussed medication refusal this morning, and the patient says tartly "I did not feel like taking it." No reported side effects from medications. No physical complaints. Review of Systems ROS Limitations: Poor Historian Except as stated in HPI: all other systems reviewed are Neg Mental Status Examination Appearance: Appropriate Consciousness: Alert Orientation: Person, Place (At least) Motor Activity: Other (No abnormal motor movements noted) Speech: Unremarkable Language: Adequate Fund of Knowledge: Adequate Attention and Concentration: Adequate Memory: Unremarkable (Grossly intact on clinical exam) Mood: Irritable Affect: Irritable Thought Process & Associations: Intact Thought Content: Appropriate Hallucination Type: Visual ("[place] elephants") Delusion Type: None Suicidal Ideation: Yes (Very vague) Suicidal Plan: No Suicidal Intention: No (No reported urge to hurt self on an inpatient unit) Homicidal Ideation: Yes (Very vague) Homicidal Plan: No Homicidal Intention: No (No reported urge to hurt others on an inpatient unit) Insight: Poor Judgment: Poor Results Labs Labs reviewed Vitals/IOs Vital Signs Date Time Temp Pulse Resp B/P (MAP) Pulse Ox O2 Delivery O2 Flow Rate FiO2 07/17/17 05:27 97.9 72 18 126/60 (10) 97 Assessment & Plan Problem List: (1) Acute exacerbation of chronic paranoid schizophrenia ICD Codes: F20.0 - Paranoid schizophrenia Assessment & Plan Titrate Geodon to 100 mg twice daily to target residual symptoms. I have encouraged adherence with psychotropic medications. Out of an abundance of caution, transfer patient camera room, and I have placed an order for this. Symptom exaggeration/secondary gain still strongly suspected. Continue other medications and care as ordered. Justification for Cont. Inpt. Monitoring for impairment in safety, none noted. Med changes. Discharge Planning Per primary psychiatrist Request HC Surrog/Guard Advoc?: No Channing De Jesus MD July 17, 2017 11:29
[2017-07-17] MEDS: FERROUS SULFATE 325 MG (65 MG ELEMENTAL IRON) TAB PO SCH ×2 (12:45→16:49)
[2017-07-17 13:03] LABS: HEMOGLOBIN A1C 7.3 % (4.3-6.0)
--- NOTE | 2017-07-17 16:25 | HHI.PR ---
Addendum to Inpatient Note Addendum Reason: Additional Documentation Additional Information Does not want to be examined. Reviewed labs. HgA1C 7.3. nutrition educator requested as patient states he has not been diagnosed with DM. Noncompliant may play role. Accuchecks trend 110-120s. Continue with Januvia use. Monitor BMP is improved from previous may try Metformin instead of Januvia if patient unable to afford meds in the outpatient. Karishma Fierro July 17, 2017 16:25
[2017-07-17] MEDS: ZIPRASIDONE HCL 20 MG CAP PO SCH ×2 (16:54)
[2017-07-17 18:42] VITALS: BP 146/73; PULSE 86; RESP 18; TEMP 98; O2SAT 95
[2017-07-18 06:54] VITALS: BP 146/78; PULSE 96; RESP 18; TEMP 98; O2SAT 92
[2017-07-18 07:45] VITALS: BP 141/66; PULSE 106; RESP 18; O2SAT 98
[2017-07-18] MEDS: INSULIN ASPART SUPPLEMENTAL SCALE SQ SCH (08:00)
[2017-07-18 08:06] LABS: BICARBONATE 22.3 MEQ/L (21.0-32.0); CREATININE 1.56 MG/DL (0.60-1.30); DIRECT BILIRUBIN ADULT 0.1 MG/DL (0.0-0.2)
[2017-07-18 08:09] LABS: CHOLESTEROL/ HDL RATIO 5.89 RATIO; HDL CHOLESTEROL 42.4 MG/DL (40.0-60.0); INDIRECT BILIRUBIN 0.2 MG/DL (0.0-0.8); TOTAL BILIRUBIN ADULT 0.3 MG/DL (0.2-1.0); TOTAL PROTEIN 8.4 GM/DL (6.4-8.2)
[2017-07-18] MEDS: ZIPRASIDONE HCL 20 MG CAP PO SCH ×4 (10:08→16:54)
[2017-07-18] MEDS: LISINOPRIL 10 MG TAB PO SCH (10:08)
[2017-07-18] MEDS: FERROUS SULFATE 325 MG (65 MG ELEMENTAL IRON) TAB PO SCH ×2 (12:00→16:53)
[2017-07-18] MEDS ORDERED: cloNIDine HCL 0.1 MG TAB PO PRN (14:00)
--- NOTE | 2017-07-18 14:37 | HHI.PR ---
Subjective Remarks Follow-up visit paranoia, noncompliance, HTN, DM. Spoke with nurse who reports patient had made statements of falling in previous days, and today. Patient is seen and examined resting in bed comfortably in no acute distress. He denies any fevers, chills, N/V/D, headache, SOB, cough or chest pain. He denies dysuria or constipation, reports he is eating and drinking. He also does remember seeing a renal doctor, but not sure what his name is. He does not mention falling or complain of any pain or discomfort. Objective Vitals Vital Signs Date Time Temp Pulse Resp B/P (MAP) Pulse Ox O2 Delivery O2 Flow Rate FiO2 07/18/17 07:45 106 18 141/66 (91) 98 07/18/17 06:54 98.0 96 18 146/78 (100) 92 07/17/17 18:42 98.0 86 18 146/73 (97) 95 Result Diagram: 07/15/17 1359 07/18/17 0645 Imaging Last Impressions Shoulder X-Ray 07/15/17 0000 Signed Impressions: CONCLUSION: Negative right shoulder series. Knee X-Ray 07/15/17 0000 Signed Impressions: CONCLUSION: Negative right knee series. Objective Remarks GENERAL: This is a obese, well-developed patient, in no apparent distress. SKIN: Cool and dry. HEENT: Normocephalic. Nose without bleeding. Airway patent. NECK: Trachea midline. GASTROINTESTINAL: Obese. MUSCULOSKELETAL: Extremities without clubbing, cyanosis, or edema. NEUROLOGICAL: Awake and alert. Moving all extremities spontaneously. Normal speech. A/P Problem List: (1) HTN (hypertension) ICD Code: I10 - Essential (primary) hypertension (2) Paranoid type schizophrenia, chronic state ICD Code: F20.0 - Paranoid schizophrenia (3) Acute exacerbation of chronic paranoid schizophrenia ICD Code: F20.0 - Paranoid schizophrenia Assessment and Plan Patient is a 57-year-old -Gibralt[place] male with history of schizophrenia/ bipolar disorder who presents as transfer from [facility] under a [place] act secondary to suicidal ideation. He is now admitted to inpatient psychiatry unit for further evaluation. Consulted for assistance with medical management patient is known to have hypertension. Schizophrenia, bipolar disorder Paranoia -Managed by psychiatry team HTN -Norvasc 10 mg daily, Lisinopril on hold secondary to DAVID. -BP stable, PRN clonidine if needed. He appears to be not to comply. Continue to encourage. Acute kidney injury and possibly chronic kidney disease ST 3 - Creatinine 1.39-->1.56 - Hold Lisinopril -Avoid nephrotoxins -Encourage p.o. fluid, sugar-free Crystal a bottle with meals. - Check renal US, follow renal function. DM 2, not on any medications -Last hemoglobin A1c 01/10/17 6.6. Current hemoglobin 7.3 -Patient previously not on any medication. Started on metformin. Creatinine came back elevated. Switched from metformin to Januvia 50 mg daily -Insulin sliding scale. Monitor Accu-Chek -Blood sugar stable, continue trending blood sugars Tobacco abuse EtOH Polysubstance abuse -Counseled. Nicotine patch. -[facility] Protocol Noncompliant, paranoid -Patient has not been compliant behavior. Did take medications today. DVT prop ambulatory Discussed with patient and nurse. Isatu Bernal July 18, 2017 14:37
--- NOTE | 2017-07-18 16:12 | HHI.PYPN ---
Subjective Chief Complaint: Psychosis Remarks Patient seen in his room with floor staff, chart reviewed, patient complaint medications, patient discussed with nurse. Patient calm and cooperative with me states is feeling somewhat better. He denies suicidality homicidality voices or visions at this time. Consider discharge tomorrow patient to be brought back to the [facility] Review of Systems Except as stated in HPI: all other systems reviewed are Neg Mental Status Examination Appearance: Appropriate Consciousness: Alert Orientation: Person, Place (At least) Motor Activity: Other (No abnormal motor movements noted) Speech: Unremarkable Language: Adequate Fund of Knowledge: Adequate Attention and Concentration: Adequate Memory: Unremarkable (Grossly intact on clinical exam) Mood: Irritable Affect: Irritable Thought Process & Associations: Intact Thought Content: Appropriate Hallucination Type: Visual ("[place] elephants") Delusion Type: None Suicidal Ideation: Yes (Very vague) Suicidal Plan: No Suicidal Intention: No (No reported urge to hurt self on an inpatient unit) Homicidal Ideation: Yes (Very vague) Homicidal Plan: No Homicidal Intention: No (No reported urge to hurt others on an inpatient unit) Insight: Poor Judgment: Poor Results Labs Test 07/18/17 06:45 Blood Urea Nitrogen 15 MG/DL Creatinine 1.56 MG/DL Random Glucose 128 MG/DL Total Protein 8.4 GM/DL Albumin 4.0 GM/DL Calcium Level 9.0 MG/DL Alkaline Phosphatase 63 U/L Aspartate Amino Transf (AST/SGOT) 26 U/L Alanine Aminotransferase (ALT/SGPT) 38 U/L Total Bilirubin 0.3 MG/DL Direct Bilirubin 0.1 MG/DL Sodium Level 139 MEQ/L Potassium Level 3.9 MEQ/L Chloride Level 103 MEQ/L Carbon Dioxide Level 22.3 MEQ/L Anion Gap 14 MEQ/L Estimat Glomerular Filtration Rate 56 ML/MIN Indirect Bilirubin 0.2 MG/DL Triglycerides Level 142 MG/DL Cholesterol Level 250 MG/DL LDL Cholesterol 179 MG/DL HDL Cholesterol 42.4 MG/DL Cholesterol/HDL Ratio 5.89 RATIO Vitals/IOs Vital Signs Date Time Temp Pulse Resp B/P (MAP) Pulse Ox O2 Delivery O2 Flow Rate FiO2 07/18/17 07:45 106 18 141/66 (91) 98 07/18/17 06:54 98.0 Assessment & Plan Problem List: (1) Acute exacerbation of chronic paranoid schizophrenia ICD Codes: F20.0 - Paranoid schizophrenia Assessment & Plan Estimated LOS: days patient improving, now denies suicidal homicidal ideation intent or plan. Consider discharge tomorrow Justification for Cont. Inpt. Consider discharge tomorrow Discharge Planning Consider discharge tomorrow Request HC Surrog/Guard Advoc?: No Lanre Patel MD July 18, 2017 16:12
[2017-07-18 18:06] VITALS: BP 142/80; PULSE 88; RESP 18; TEMP 98.4; O2SAT 95
[2017-07-19 06:06] VITALS: BP 121/60; PULSE 73; RESP 19; TEMP 98.3; O2SAT 96
[2017-07-19] MEDS: INSULIN ASPART SUPPLEMENTAL SCALE SQ SCH (08:00)
[2017-07-19] MEDS ORDERED: LISI10TA3 PO (09:30)
[2017-07-19] MEDS ORDERED: SITA50 PO (09:30)
[2017-07-19] MEDS ORDERED: AMLO10 PO (09:30)
[2017-07-19] MEDS ORDERED: GEOD60CA PO (09:30)
[2017-07-19] MEDS ORDERED: FERR325T20 PO (09:30)
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
[2017-07-19] MEDS: ZIPRASIDONE HCL 20 MG CAP PO SCH ×2 (10:09→10:10)
[2017-07-19] MEDS: FERROUS SULFATE 325 MG (65 MG ELEMENTAL IRON) TAB PO SCH (12:00)
== END 2017-07-19 13:30 | disposition home or self-care (01) | DRG 885 ==
LOC: H270 23:30 → H260 07-06 16:35
PROVIDERS: ADMIT Psychiatry & Neurology Psychiatry; ATTEND Psychiatry & Neurology Psychiatry
DX: F20.0 Paranoid schizophrenia (principal); N17.9 Acute kidney failure, unspecified; R45.851 Suicidal ideations; E11.65 Type 2 diabetes mellitus with hyperglycemia; R00.1 Bradycardia, unspecified; Z68.41 Body mass index [BMI] 40.0-44.9, adult; F31.9 Bipolar disorder, unspecified; F14.10 Cocaine abuse, uncomplicated; F13.10 Sedative, hypnotic or anxiolytic abuse, uncomplicated; I10 Essential (primary) hypertension; E66.9 Obesity, unspecified; N62 Hypertrophy of breast; I44.0 Atrioventricular block, first degree; J45.909 Unspecified asthma, uncomplicated; F17.210 Nicotine dependence, cigarettes, uncomplicated; F11.10 Opioid abuse, uncomplicated; R32 Unspecified urinary incontinence; R68.2 Dry mouth, unspecified; M25.511 Pain in right shoulder; W19.XXXA Unspecified fall, initial encounter; Z59.0 Homelessness; Z81.8 Family history of other mental and behavioral disorders; Z88.6 Allergy status to analgesic agent; Z91.14 Patient's other noncompliance with medication regimen; Z91.19 Patient's noncompliance with other medical treatment and regimen; Z91.419 Personal history of unspecified adult abuse; Z91.5 Personal history of self-harm
CPT/HCPCS: 73030; 73560; 80048; 80053; 80061; 80076; 82728; 82948; 83036; 83540; 83550; 84146; 84443; 85025; 85027; Q0163